=== PATIENT | female | born 1990 | race Caucasian/White ===

== ENCOUNTER 2016-06-01 08:02 | Emergency (ER) | payer BC ==
[~2016-06-01] VITALS: Ht 162.6 cm; Wt 53.5 kg
[~2016-06-01 08:02] MED LIST: GLC/500 PO; OXYC-643 PO; TRAM-10 PO
[2016-06-01 08:05] VITALS: TEMP 36.6; Ht 162.6 cm; Wt 53.5 kg
[2016-06-01] MEDS ORDERED: ONDANSETRON INJ 2 MG/ML 2 ML VIAL IV STA (08:14)
[2016-06-01] MEDS ORDERED: SODIUM CHLORIDE 0.9% 1000ML 1,000 ML IV STA (08:14)
[2016-06-01] MEDS ORDERED: HYDROmorphone INJ 1 MG/ML SYR IV STA ×3 (08:14→10:03)
--- NOTE | 2016-06-01 08:30 | EMERGENCY ROOM VISIT NOTE ---
History Report prepared by Lenin: Otto Valdovinos Under the Supervision of: Dr. Rose Denny M.D. First contact with patient: 08:08 Chief Complaint: FLANK PAIN Stated Complaint: RIGHT SIDED PAIN/KIDNEY STONE History of Present Illness The patient is a 26 year old female who presents to the Emergency Room with complaints of persistent right sided abdominal pain that started 3 hours ago. The patient notes that the discomfort woke her from sleep 3 hours ago and she wasn't able to fall asleep. She describes the discomfort as a pressure and notes that it is severe. The pressure is in her abdomen and back on the right side. The patient had an episode of vomiting. The patient has a history of kidney stones and has had [address] stents for them. She notes her symptoms are similar to her usual kidney stones. She took Zofran and Hydrocodone; however, she threw up right after taking the Hydrocodone. She denies urinary frequency. Source of History: patient Onset: 3 hours ago Position: abdomen Symptom Intensity: severe Quality: pressure Timing: other (persistent) Associated Symptoms: + back pain, No urinary symptoms (denies urinary frequency) Review of Systems See HPI for pertinent positives & negatives. A total of 10 systems reviewed and were otherwise negative. Past Medical & Surgical Medical Problems: (1) Acute pyelonephritis (2) Acute urinary tract infection (3) Appendectomy (4) ASTHMA, UNSPECIFIED (5) Bronchitis (6) Closure of atrial septal defect (7) dysautonomia (8) gallbladder surgery (9) Kidney stone (10) PNA (pneumonia) (11) Polycystic ovarian disease (12) Sinus surgery (13) Tonsillectomy Family History Diabetes mellitus FH: cancer FH: gallbladder disease FH: heart disease FH: lung disease Hypertension Kidney disease or stones Social History Smoking Status: Never Smoker Alcohol Use: none Marital Status: single Housing Status: lives with family Occupation Status: [employer] student Current/Historical Medications Scheduled Metformin Hcl (Glucophage), 500 MG PO TID Allergies Coded Allergies: Cefprozil (Verified Allergy, Severe, HIVES, 06/01/16) TOLERATED ZOSYN IN ER 10/03/12 Ciprofloxacin (Verified Allergy, Severe, HIVES, 06/01/16) Cephalosporins (Verified Allergy, Intermediate, HIVES, 06/01/16) Vancomycin (Verified Allergy, Intermediate, HIVES, 06/01/16) Ceftriaxone (Verified Allergy, Unknown, HIVES, 06/01/16) Sulfamethoxazole w/Trimethoprim (Verified Allergy, Unknown, ., 06/01/16) Physical Exam Vital Signs Date Time Temp Pulse Resp B/P Pulse Ox O2 Delivery O2 Flow Rate FiO2 06/01/16 11:10 81 18 109/72 97 06/01/16 09:44 78 18 100/74 98 Room Air 06/01/16 09:02 78 06/01/16 08:28 74 16 107/73 99 Room Air 06/01/16 08:05 36.6 89 18 120/76 99 Room Air Physical Exam Vital signs reviewed. General: Well-appearing in significant discomfort. HEENT: No scleral icterus, PERRLA, neck supple. Atraumatic. Cardiovascular: Regular rate and rhythm, no extra sounds. Pulmonary: Clear to auscultation bilaterally, normal work of breathing. Abdomen: Soft, minimal abdominal discomfort on right side, nondistended, positive bowel sounds. Back: Positive right CVA tenderness. Atraumatic Musculoskeletal: Atraumatic, no peripheral edema. Neurologic: Patient awake alert and oriented x 3, full strength in all 4 extremities. Cranial nerves 2 through 12 grossly intact. Skin: Warm, dry, no rash Medical Decision & Procedures ER Provider Diagnostic Interpretation: X-ray results as stated below per my interpretation and radiologist interpretation. Other radiology results as stated below per my review and radiologist interpretation: RENAL ULTRASOUND HISTORY: Flank pain Right flank pain, kidney stone COMPARISON: None. FINDINGS: Right kidney: Maximum dimension 11.1 cm. Several renal calcifications considered nonobstructive. Normal corticomedullary differentiation and cortical thickness. Left kidney: Maximum dimension 11.6 cm. No evidence for hydronephrosis. Several nonobstructing renal cortical calcifications. Normal corticomedullary differentiation and cortical thickness. Bladder: No bladder wall thickening. The bilateral ureteral jets were identified. IMPRESSION: Bilateral renal calcifications which appear nonobstructing. No evidence for hydronephrosis. Electronically signed by: Orlando Salmeron M.D. 06/01/2016 9:48 AM Dictated Date/Time: 06/01/2016 9:37 AM KUB HISTORY: Right flank pain kidney stone COMPARISON: KUB 09/28/2014. FINDINGS: The bowel gas pattern is unremarkable. There are no dilated loops of small bowel to suggest an obstruction. Bilateral punctate renal calculi remain unchanged. The largest in the left kidney measures 2 mm. No ureteral or bladder calculi identified. Prior cholecystectomy. No pneumoperitoneum or pneumatosis. IMPRESSION: Stable bilateral nephrolithiasis. No ureteral calculi identified. Electronically signed by: Raul Vargas M.D. 06/01/2016 8:57 AM Dictated Date/Time: 06/01/2016 8:55 AM Laboratory Results 06/01/16 08:25 Red Blood Count 4.61, Mean Corpuscular Volume 85.5, Mean Corpuscular Hemoglobin 29.9, Mean Corpuscular Hemoglobin Concent 35.0, Mean Platelet Volume 9.7, Neutrophils (%) (Auto) 60.2, Lymphocytes (%) (Auto) 28.9, Monocytes (%) (Auto) 7.6, Eosinophils (%) (Auto) 2.8, Basophils (%) (Auto) 0.4, Neutrophils # (Auto) 4.24, Lymphocytes # (Auto) 2.04, Monocytes # (Auto) 0.54, Eosinophils # (Auto) 0.20, Basophils # (Auto) 0.03 06/01/16 08:25 Test 06/01/16 08:22 06/01/16 08:25 Urine Color YELLOW Urine Appearance CLOUDY (CLEAR) Urine pH 6.0 (4.5-7.5) Urine Specific [place] 1.012 (1.000-1.030) Urine Protein NEG (NEG) Urine Glucose (UA) NEG (NEG) Urine Ketones NEG (NEG) Urine Occult Blood NEG (NEG) Urine Nitrite NEG (NEG) Urine Bilirubin NEG (NEG) Urine Urobilinogen NEG (NEG) Urine Leukocyte Esterase TRACE (NEG) Urine WBC (Auto) 5-10 /hpf (0-5) Urine RBC (Auto) 0-4 /hpf (0-4) Urine Hyaline Casts (Auto) 0 /lpf (0-5) Urine Epithelial Cells (Auto) >30 /lpf (0-5) Urine Bacteria (Auto) 1+ (NEG) White Blood Count 7.06 K/uL (4.8-10.8) Red Blood Count 4.61 M/uL (4.2-5.4) Hemoglobin 13.8 g/dL (12.0-16.0) Hematocrit 39.4 % (37-47) Mean Corpuscular Volume 85.5 fL (80-100) Mean Corpuscular Hemoglobin 29.9 pg (25-34) Mean Corpuscular Hemoglobin Concent 35.0 g/dl (32-36) Platelet Count 342 K/uL (130-400) Mean Platelet Volume 9.7 fL (7.4-10.4) Neutrophils (%) (Auto) 60.2 % Lymphocytes (%) (Auto) 28.9 % Monocytes (%) (Auto) 7.6 % Eosinophils (%) (Auto) 2.8 % Basophils (%) (Auto) 0.4 % Neutrophils # (Auto) 4.24 K/uL (1.4-6.5) Lymphocytes # (Auto) 2.04 K/uL (1.2-3.4) Monocytes # (Auto) 0.54 K/uL (0.11-0.59) Eosinophils # (Auto) 0.20 K/uL (0-0.5) Basophils # (Auto) 0.03 K/uL (0-0.2) RDW Standard Deviation 38.5 fL (36.4-46.3) RDW Coefficient of Variation 12.5 % (11.5-14.5) Immature Granulocyte % (Auto) 0.1 % Immature Granulocyte # (Auto) 0.01 K/uL (0.00-0.02) Anion Gap 9.0 mmol/L (3-11) Est Creatinine Clear Calc Drug Dose 99.0 ml/min Estimated GFR () 131.4 Estimated GFR (Non- 113.4 BUN/Creatinine Ratio 18.0 (10-20) Calcium Level 9.3 mg/dl (8.5-10.1) Total Bilirubin 0.4 mg/dl (0.2-1) Direct Bilirubin < 0.1 mg/dl (0-0.2) Aspartate Amino Transf (AST/SGOT) 7 U/L (15-37) Alanine Aminotransferase (ALT/SGPT) 19 U/L (12-78) Alkaline Phosphatase 89 U/L (45-117) Total Protein 7.9 gm/dl (6.4-8.2) Albumin 4.3 gm/dl (3.4-5.0) Human Chorionic Gonadotropin, Qual NEG (NEG) Laboratory results per my review. Medications Administered Medications (Trade) Dose Ordered Sig/Lynda Route Start Time Stop Time Status Last Admin Dose Admin Hydromorphone HCl (Dilaudid Inj) 1 mg NOW STAT IV 06/01/16 08:14 06/01/16 08:17 DC 06/01/16 08:25 1 MG Ondansetron HCl 4 mg 4 mg NOW STAT IV 06/01/16 08:14 06/01/16 08:17 DC 06/01/16 08:24 4 MG Sodium Chloride (Nss 1000ml) 1,000 ml @ 999 mls/hr Q1H1M STAT IV 06/01/16 08:14 06/01/16 09:14 DC 06/01/16 08:24 999 MLS/HR Hydromorphone HCl (Dilaudid Inj) 1 mg NOW STAT IV 06/01/16 08:53 06/01/16 08:54 DC 06/01/16 08:58 1 MG Hydromorphone HCl (Dilaudid Inj) 1 mg NOW STAT IV 06/01/16 10:03 06/01/16 10:04 DC 06/01/16 10:11 1 MG ED Course 0814: Past medical records reviewed. The patient was evaluated in room B7. A complete history and physical examination was performed. 0814: Ordered NSS 1000 ml @ 999 mls/hr IV, Zofran Inj 4 mg IV, Dilaudid Inj 1 mg IV. 0853: Ordered Dilaudid Inj 1 mg IV. 1003: Ordered Dilaudid Inj 1 mg IV. 1025: At this time, I reevaluated the patient and she is resting comfortably. 1102: Upon reevaluation, the patient appeared to have improvement of her symptoms. I discussed findings with her. She verbalized agreement of the treatment plan. The patient was discharged home. Medical Decision Differential diagnosis: Etiologies such as renal colic, appendicitis, diverticulitis, mesenteric ischemia, aortic pathology, infections, inflammatory bowel disease, PUD, biliary pathology, UTI, as well as others were entertained. This pt was evaluated and appeared to be in no distress. IV access was obtained and lab work was drawn. PT was placed on the cardiac cath tech. She was medicated with IV dilaudid x 3 doses and zofran. She was hydrated with NSS. US reveals no significant renal obstruction, + intrarenal caculi. UA is negative for blood. KUB is negative for ureteral stones, stable intrarenal calculi. Pt was informed of the findings. She may have passed a small stone. CT scan was avoided today d/t pt history of stones and young age. She was asked to f/u with urology this week and return to the ED for worsening of symptoms or any medical concerns. [place] Drug Monitoring Program Search Results: patient reviewed within database (multiple scripts from PCP) Impression Primary Impression: Right flank pain Scribe Attestation The scribe's documentation has been prepared under my direction and personally reviewed by me in its entirety. I confirm that the note above accurately reflects all work, treatment, procedures, and medical decision making performed by me. Departure Information Dispostion Home / Self-Care Referrals No Doctor, Assigned (PCP) Forms HOME CARE DOCUMENTATION FORM, IMPORTANT VISIT INFORMATION Patient Instructions My [facility] Additional Instructions Diagnosis: Right flank pain Ibuprofen 600 mg every 6 hours as needed for pain with food. [place] as prescribed by her primary care Drink plenty of clear fluids. Warm compresses. Return to the ER for worsening of symptoms or any medical concerns.
[2016-06-01 08:39] LABS: BASO % 0.4 %; BASO ABS # 0.03 K/uL (0-0.2); COMPLETE YES; EOS % 2.8 %; HEMATOCRIT 39.4 % (37-47); IG% 0.1 %; LYMPH % 28.9 %; LYMPH ABS # 2.04 K/uL (1.2-3.4); MEAN CELL VOLUME 85.5 fL (80-100); MEAN CORPUSCULAR HEMOGLOBIN 29.9 pg (25-34); MEAN PLATELET VOLUME 9.7 fL (7.4-10.4); MONO % 7.6 %; NEUT % 60.2 %; PLATELET COUNT 342 K/uL (130-400); RED BLOOD COUNT 4.61 M/uL (4.2-5.4); WHITE BLOOD COUNT 7.06 K/uL (4.8-10.8)
[2016-06-01 08:46] LABS: URINE APPEARANCE CLOUDY (CLEAR); URINE BILIRUBIN NEG (NEG); URINE COLOR YELLOW; URINE EPITHELIAL CELL AUTO >30 /lpf (0-5); URINE NITRITE NEG (NEG); URINE SPECIFIC GRAVITY 1.012 (1.000-1.030); UROBILINOGEN NEG (NEG); ZZUR CULT IF INDIC CLEAN CATCH YES
[2016-06-01 08:50] LABS: MANUAL MICROSCOPIC REQUIRED? NO; REVIEW REQ? NO
[2016-06-01 08:57] LABS: ALT/SGPT 19 U/L (12-78); BLOOD UREA NITROGEN 13 mg/dl (7-18); CALCIUM 9.3 mg/dl (8.5-10.1); CARBON DIOXIDE 25 mmol/L (21-32); CHLORIDE 108 mmol/L (98-107); CREATININE 0.74 mg/dl (0.60-1.20); GLUCOSE 90 mg/dl (70-99); POTASSIUM 3.7 mmol/L (3.5-5.1); SODIUM 142 mmol/L (136-145)
--- NOTE | 2016-06-01 08:58 | DIAGNOSTIC IMAGING REPORT ---
KUB HISTORY: Right flank pain kidney stone COMPARISON: KUB 09/28/2014. FINDINGS: The bowel gas pattern is unremarkable. There are no dilated loops of small bowel to suggest an obstruction. Bilateral punctate renal calculi remain unchanged. The largest in the left kidney measures 2 mm. No ureteral or bladder calculi identified. Prior cholecystectomy. No pneumoperitoneum or pneumatosis. IMPRESSION: Stable bilateral nephrolithiasis. No ureteral calculi identified. Electronically signed by: Raul Vargas M.D. 06/01/2016 8:57 AM Dictated Date/Time: 06/01/2016 8:55 AM
[2016-06-01 09:00] LABS: ALKALINE PHOSPHATASE 89 U/L (45-117); AST/SGOT 7 U/L (15-37)
[2016-06-01 09:12] LABS: PREG INTERNAL NEGATIVE QC NEG CLEAR BACKGROUND; PREG INTERNAL POSITIVE QC POS CONTROL LINE
--- NOTE | 2016-06-01 09:50 | DIAGNOSTIC IMAGING REPORT ---
RENAL ULTRASOUND HISTORY: Flank pain Right flank pain, kidney stone COMPARISON: None. FINDINGS: Right kidney: Maximum dimension 11.1 cm. Several renal calcifications considered nonobstructive. Normal corticomedullary differentiation and cortical thickness. Left kidney: Maximum dimension 11.6 cm. No evidence for hydronephrosis. Several nonobstructing renal cortical calcifications. Normal corticomedullary differentiation and cortical thickness. Bladder: No bladder wall thickening. The bilateral ureteral jets were identified. IMPRESSION: Bilateral renal calcifications which appear nonobstructing. No evidence for hydronephrosis. Electronically signed by: Orlando Salmeron M.D. 06/01/2016 9:48 AM Dictated Date/Time: 06/01/2016 9:37 AM
[2016-06-01 11:10] VITALS: BP 109/72; PULSE 81; O2SAT 97
== END 2016-06-01 11:11 | disposition home or self-care (01) ==
LOC: C.EDB 08:04
DX: R10.30 Lower abdominal pain, unspecified (principal); Z87.442 Personal history of urinary calculi; Z87.440 Personal history of urinary (tract) infections; J45.909 Unspecified asthma, uncomplicated; Z87.01 Personal history of pneumonia (recurrent); Z83.3 Family history of diabetes mellitus; Z82.49 Family history of ischemic heart disease and other diseases of the circulatory system

== ENCOUNTER 2016-11-06 19:55 | Emergency (ER) | payer BC, OTHER ==
[~2016-11-06] VITALS: Ht 162.6 cm; Wt 52.9 kg
[~2016-11-06 19:55] MED LIST changes: -OXYC-643 PO; -TRAM-10 PO
[2016-11-06 19:56] VITALS: TEMP 37; Ht 162.6 cm; Wt 52.9 kg
[2016-11-06] MEDS ORDERED: HYDR-5688 PO (20:18)
[2016-11-06] MEDS ORDERED: SODIUM CHLORIDE 0.9% 1000ML 1,000 ML IV STA (20:48)
[2016-11-06] MEDS ORDERED: KETOROLAC TROMETHAMINE 30 MG/ML VIAL IV STA (20:48)
[2016-11-06 21:21] LABS: URINE APPEARANCE CLEAR (CLEAR); URINE BILIRUBIN NEG (NEG); URINE COLOR YELLOW; URINE EPITHELIAL CELL AUTO >30 /lpf (0-5); URINE NITRITE NEG (NEG); URINE SPECIFIC GRAVITY 1.023 (1.000-1.030); UROBILINOGEN NEG (NEG)
[2016-11-06 21:26] LABS: BASO % 0.5 %; BASO ABS # 0.04 K/uL (0-0.2); COMPLETE YES; EOS % 1.5 %; HEMATOCRIT 35.4 % (37-47); IG% 0.1 %; LYMPH % 42.6 %; LYMPH ABS # 3.46 K/uL (1.2-3.4); MEAN CELL VOLUME 83.5 fL (80-100); MEAN CORPUSCULAR HEMOGLOBIN 29.5 pg (25-34); MEAN CORPUSCULAR HGB CONC 35.3 g/dl (32-36); MEAN PLATELET VOLUME 9.8 fL (7.4-10.4); MONO % 9.3 %; PLATELET COUNT 312 K/uL (130-400); RED BLOOD COUNT 4.24 M/uL (4.2-5.4); WHITE BLOOD COUNT 8.13 K/uL (4.8-10.8)
[2016-11-06 21:27] LABS: MANUAL MICROSCOPIC REQUIRED? NO; REVIEW REQ? NO
[2016-11-06 21:35] LABS: PARTIAL THROMBOPLASTIN RATIO 1.1; PROTHROMBIN TIME (PATIENT) 11.1 SECONDS (9.0-12.0)
--- NOTE | 2016-11-06 21:39 | DIAGNOSTIC IMAGING REPORT ---
TWO VIEW CHEST CLINICAL HISTORY: Vomiting and fever. FINDINGS: PA and lateral chest radiographs are compared to study dated 05/08/2013. The cardiomediastinal silhouette is unremarkable. An atrial septal closure device is noted. The lungs and pleural spaces are clear. There is no pneumothorax. The bony thorax appears intact. Cholecystectomy clips are seen in the right upper quadrant. IMPRESSION: No active disease in the chest. Electronically signed by: Jasmeet Gross M.D. 11/06/2016 9:38 PM Dictated Date/Time: 11/06/2016 9:36 PM
[2016-11-06 21:43] LABS: ALT/SGPT 20 U/L (12-78); BLOOD UREA NITROGEN 9 mg/dl (7-18); BUN/CREATININE RATIO 10.3 (10-20); CALCIUM 8.7 mg/dl (8.5-10.1); CARBON DIOXIDE 24 mmol/L (21-32); CHLORIDE 108 mmol/L (98-107); CREATININE 0.86 mg/dl (0.60-1.20); GLUCOSE 85 mg/dl (70-99); POTASSIUM 3.5 mmol/L (3.5-5.1); SODIUM 141 mmol/L (136-145)
[2016-11-06 21:54] LABS: ALKALINE PHOSPHATASE 64 U/L (45-117); AST/SGOT 10 U/L (15-37)
[2016-11-06 22:49] LABS: LYME DISEASE AB IGG NEG (NEG); LYME DISEASE AB IGM NEG (NEG)
[2016-11-06 23:24] VITALS: BP 108/70; PULSE 80; O2SAT 96
[2016-11-06 23:31] LABS: RHEUMATOID FACTOR < 10.0 U/mL (0-15)
--- NOTE | 2016-11-07 00:37 | EMERGENCY ROOM VISIT NOTE ---
History Report prepared by Lenin: Alana Pierce Under the Supervision of: Dr. Giovani Wong M.D. First contact with patient: 20:33 Chief Complaint: PAIN (GENERALIZED) Stated Complaint: OVER ALL PAIN,FATIGUE,FEVERS History of Present Illness The patient is a 26 year old female who presents to the Emergency Room with complaints of intermittent generalized pain that began . She currently rates her discomfort as a 7/10 in severity. The patient states that after work she didn't feel like herself. She states that her symptoms did not hit her until Monday. The patient states that her bones hurt to the point that they felt on fire. She reports bilateral leg stiffness and neck stiffness. The patient states that when she tries to get up, she has difficulty due to the stiffness. She denies ever having symptoms like this in the past. The patient states that Monday she became nauseated and vomited. She states that Monday she slept most of the day and was feeling increasingly fatigued. The patient states that she has been running a low-grade fever and chills. She additionally reports that her eyes have been sensitive to light. She denies any headache. The patient states that she has been experiencing urinary frequency, but no burning. She states that she is prone to frequent UTIs, kidney stones, and kidney infections. Today, the patient additionally reports left sided facial tingling that began two hours ago. She additionally notes a bruise to her tongue. The patient states that she recently saw her PCP who prescribed her 7 days of doxycycline after finding enlarged lymph nodes to the back of her neck. The patient denies any recent tick bites, but states that she is out in the hall often. She states that she has a history of dysautonomia, noting that she is prescribed hydrocodone to help with her pain. The patient states that she recently had a rash to her lower abdomen. She denies any cough, cold, runny nose, sore throat, or abdominal pain. Source of History: patient Onset: Position: other (global) Symptom Intensity: 7/10 Quality: other (feels like bones are on fire) Timing: intermittent Associated Symptoms: + fevers, + chills, + nausea, + vomiting, + urinary symptoms (frequency), + rash, No sorethroat, No cough, No abdominal pain Note: Associated Symptoms: neck stiffness, leg stiffness, left sided facial tingling, bruise to tongue, lymph node enlargements Review of Systems See HPI for pertinent positives & negatives. A total of 10 systems reviewed and were otherwise negative. Past Medical & Surgical Medical Problems: (1) Acute pyelonephritis (2) Acute urinary tract infection (3) Appendectomy (4) ASTHMA, UNSPECIFIED (5) Bronchitis (6) Closure of atrial septal defect (7) dysautonomia (8) gallbladder surgery (9) Kidney stone (10) PNA (pneumonia) (11) Polycystic ovarian disease (12) Sinus surgery (13) Tonsillectomy Family History Diabetes mellitus FH: cancer FH: gallbladder disease FH: heart disease FH: lung disease Hypertension Kidney disease or stones Social History Smoking Status: Never Smoker Alcohol Use: none Marital Status: single Housing Status: lives with family Occupation Status: [employer] student Current/Historical Medications Scheduled Metformin Hcl (Glucophage), 500 MG PO TID Scheduled PRN Hydrocodone/Acetaminophen 5MG/325MG ([place] 5MG/325MG), 1 TABLET PO Q4H PRN for Pain Allergies Coded Allergies: BEE STING (Verified Allergy, Severe, ANAPHYLAXIS, 11/06/16) Cefprozil (Verified Allergy, Severe, HIVES, 11/06/16) TOLERATED ZOSYN IN ER 10/03/12 Ciprofloxacin (Verified Allergy, Severe, HIVES, 11/06/16) Sulfamethoxazole w/Trimethoprim (Verified Allergy, Severe, HIVES, 11/06/16) Cephalosporins (Verified Allergy, Intermediate, HIVES, 11/06/16) Vancomycin (Verified Allergy, Intermediate, HIVES, 11/06/16) Ceftriaxone (Verified Allergy, Unknown, HIVES, 11/06/16) Physical Exam Vital Signs Date Time Temp Pulse Resp B/P (MAP) Pulse Ox O2 Delivery O2 Flow Rate FiO2 11/06/16 23:24 80 18 108/70 96 11/06/16 22:23 83 18 104/65 98 Room Air 11/06/16 19:56 37.0 82 18 121/93 99 Room Air Physical Exam Constitutional: Vital signs reviewed. Eyes: Pupils are equal round reactive to light. Conjunctiva are noninjected. ENT: Posterior cervical lymph node on right side, 2 papular regions at the occiput without tenderness or erythema. Tongue has a subcentimeter dark lesion on the right tip. Pharynx is clear without erythema or exudate. Mucous membranes are moist. Neck supple without meningeal signs. Respiratory: Clear to auscultation bilaterally. Breath sounds are equal bilaterally. Cardiovascular: Regular rate and rhythm. No rubs or gallops. GI: Soft, nondistended and nontender. Bowel sounds are present. No organomegaly. Musculoskeletal: No peripheral edema. No lower extremity tenderness. No evidence of joint swelling. Integumentary: No cyanosis. Neurological: The patient is awake and alert. No focal deficits. Psychiatric: Normal affect. Medical Decision & Procedures ER Provider Diagnostic Interpretation: X-ray results as stated below per interpretation by me and the radiologist: TWO VIEW CHEST CLINICAL HISTORY: Vomiting and fever. FINDINGS: PA and lateral chest radiographs are compared to study dated 05/08/2013. The cardiomediastinal silhouette is unremarkable. An atrial septal closure device is noted. The lungs and pleural spaces are clear. There is no pneumothorax. The bony thorax appears intact. Cholecystectomy clips are seen in the right upper quadrant. IMPRESSION: No active disease in the chest. Electronically signed by: Jasmeet Gross M.D. 11/06/2016 9:38 PM Dictated Date/Time: 11/06/2016 9:36 PM Laboratory Results 11/06/16 21:00 Red Blood Count 4.24, Mean Corpuscular Volume 83.5, Mean Corpuscular Hemoglobin 29.5, Mean Corpuscular Hemoglobin Concent 35.3, Mean Platelet Volume 9.8, Neutrophils (%) (Auto) 46.0, Lymphocytes (%) (Auto) 42.6, Monocytes (%) (Auto) 9.3, Eosinophils (%) (Auto) 1.5, Basophils (%) (Auto) 0.5, Neutrophils # (Auto) 3.74, Lymphocytes # (Auto) 3.46, Monocytes # (Auto) 0.76, Eosinophils # (Auto) 0.12, Basophils # (Auto) 0.04 11/06/16 21:00 Test 11/06/16 20:45 11/06/16 21:00 11/06/16 21:05 Urine Color YELLOW Urine Appearance CLEAR (CLEAR) Urine pH 6.0 (4.5-7.5) Urine Specific [place] 1.023 (1.000-1.030) Urine Protein NEG (NEG) Urine Glucose (UA) NEG (NEG) Urine Ketones NEG (NEG) Urine Occult Blood NEG (NEG) Urine Nitrite NEG (NEG) Urine Bilirubin NEG (NEG) Urine Urobilinogen NEG (NEG) Urine Leukocyte Esterase TRACE (NEG) Urine WBC (Auto) 5-10 /hpf (0-5) Urine RBC (Auto) 5-10 /hpf (0-4) Urine Hyaline Casts (Auto) 1-5 /lpf (0-5) Urine Epithelial Cells (Auto) >30 /lpf (0-5) Urine Bacteria (Auto) NEG (NEG) Urine Test NEG (NEG) White Blood Count 8.13 K/uL (4.8-10.8) Red Blood Count 4.24 M/uL (4.2-5.4) Hemoglobin 12.5 g/dL (12.0-16.0) Hematocrit 35.4 % (37-47) Mean Corpuscular Volume 83.5 fL (80-100) Mean Corpuscular Hemoglobin 29.5 pg (25-34) Mean Corpuscular Hemoglobin Concent 35.3 g/dl (32-36) Platelet Count 312 K/uL (130-400) Mean Platelet Volume 9.8 fL (7.4-10.4) Neutrophils (%) (Auto) 46.0 % Lymphocytes (%) (Auto) 42.6 % Monocytes (%) (Auto) 9.3 % Eosinophils (%) (Auto) 1.5 % Basophils (%) (Auto) 0.5 % Neutrophils # (Auto) 3.74 K/uL (1.4-6.5) Lymphocytes # (Auto) 3.46 K/uL (1.2-3.4) Monocytes # (Auto) 0.76 K/uL (0.11-0.59) Eosinophils # (Auto) 0.12 K/uL (0-0.5) Basophils # (Auto) 0.04 K/uL (0-0.2) RDW Standard Deviation 37.3 fL (36.4-46.3) RDW Coefficient of Variation 12.2 % (11.5-14.5) Immature Granulocyte % (Auto) 0.1 % Immature Granulocyte # (Auto) 0.01 K/uL (0.00-0.02) Prothrombin Time 11.1 SECONDS (9.0-12.0) Prothromb Time International Ratio 1.0 (0.9-1.1) Activated Partial Thromboplast Time 27.7 SECONDS (21.0-31.0) Partial Thromboplastin Ratio 1.1 Anion Gap 9.0 mmol/L (3-11) Est Creatinine Clear Calc Drug Dose 84.2 ml/min Estimated GFR () 109.6 Estimated GFR (Non- 94.6 BUN/Creatinine Ratio 10.3 (10-20) Calcium Level 8.7 mg/dl (8.5-10.1) Total Bilirubin 0.4 mg/dl (0.2-1) Direct Bilirubin < 0.1 mg/dl (0-0.2) Aspartate Amino Transf (AST/SGOT) 10 U/L (15-37) Alanine Aminotransferase (ALT/SGPT) 20 U/L (12-78) Alkaline Phosphatase 64 U/L (45-117) Total Protein 7.3 gm/dl (6.4-8.2) Albumin 4.0 gm/dl (3.4-5.0) Thyroid Stimulating Hormone (TSH) 1.170 uIu/ml (0.300-4.500) Rheumatoid Factor < 10.0 U/mL (0-15) Lyme Disease IgG Antibody NEG (NEG) Monoscreen NEG (NEG) Influenza Type A Antigen Neg for Influ A (NEG) Influenza Type B Antigen Neg for Influ B (NEG) Laboratory results as reviewed by me. Medications Administered Medications (Trade) Dose Ordered Sig/Lynda Route Start Time Stop Time Status Last Admin Dose Admin Sodium Chloride 1,000 ml @ 999 mls/hr Q1H1M STAT IV 11/06/16 20:48 11/06/16 21:48 DC 11/06/16 20:48 999 MLS/HR Ketorolac Tromethamine (Toradol Inj) 10 mg NOW STAT IV 11/06/16 20:48 11/06/16 20:51 DC 11/06/16 21:17 10 MG ED Course 2034: The patient was evaluated in room A2. A complete history and physical exam was performed. 2047: Ordered Toradol Inj 10 mg IV, Sodium Chloride 1000 ml @ 999 mls/hr IV 5: I reevaluated the patient and she is feeling better. I discussed the test results with her thus far. 2306: I reevaluated the patient and she is resting comfortably. I discussed the exam findings with her and I discussed the treatment plan. She verbalized complete understanding and agreement. She will follow up with her PCP this week. She is ready to go home. Medical Decision This is a 26-year-old female who presents with chills and body pain. Differential diagnosis includes infectious mononucleosis, Lyme disease, viral syndrome, myofascial pain, rheumatoid arthritis. I did perform a limited focused review of portions of the patient's old chart on the electronic medical record. The patient has had no recent pertinent visits to this hospital. Medication Reconciliation: I attest that I have personally reviewed the patient' s current medication list. Blood Pressure Screening: Patient was found to have a slightly elevated blood pressure due to circumstances. I do not believe that the patient requires hypertension monitoring. I did evaluate the patient as noted above. The patient is presenting with pain throughout her body. She states her legs are really bothering her although she has no specific joint pain. She describes her pain as pain in the bones. She has had no fevers but does complain of chills. She has some neck stiffness but denies headache. She has lesions on the back of her neck which do not appear to be abscesses or cellulitic. She also has a small cervical lymph node posteriorly. She was previously treated with doxycycline by her PCP because of these lesions. IV access was established. I did treat the patient with IV Toradol and normal saline. I did order and review the patient's chest x-ray as described above. I did order and review the patient's blood work as noted in the electronic medical record. Her white blood cell count is not elevated. Monospot and Lyme testing are negative. I did order a urinalysis which does not show signs of infection. I did reevaluate the patient. She states she is feeling better. I did discuss the test results with the patient and her mother. At this time it is unclear what is causing her pain. I did recommend very close follow up with her doctor. She is feeling better she was discharged home. She was given return instructions as outlined below. Impression Primary Impression: Total body pain Additional Impression: Scalp lesion Scribe Attestation The scribe's documentation has been prepared under my direct and personally reviewed by me in its entirety. I confirm that the note above accurately reflects all work, treatment, procedures, and medical decision making performed by me. Departure Information Dispostion Home / Self-Care Referrals Chele Madera PA-C (PCP) Forms HOME CARE DOCUMENTATION FORM, IMPORTANT VISIT INFORMATION, WORK / SCHOOL INSTRUCTIONS Patient Instructions My [facility] Additional Instructions You have been examined and treated today on an emergency basis only. This is not a substitute for, or an effort to provide, complete comprehensive medical care. It is impossible to recognize and treat all injuries or illnesses in a single emergency department visit. It is therefore important that you follow up closely with your physician. Call as soon as possible for an appointment. Return for worsening symptoms or if you develop fever, vomiting, rash or any other concerning symptoms. Problem Qualifiers
[2016-11-10 15:39] LABS: 18KDIGG BAND NONREACTIVE (NONREACTIVE); 23KDIGG BAND NONREACTIVE (NONREACTIVE); 23KDIGM BAND REACTIVE (NONREACTIVE); 28KDIGG BAND NONREACTIVE (NONREACTIVE); 30KDIGG BAND NONREACTIVE (NONREACTIVE); 39KDIGG BAND NONREACTIVE (NONREACTIVE); 39KDIGM BAND NONREACTIVE (NONREACTIVE); 41KDIGG BAND REACTIVE (NONREACTIVE); 41KDIGM BAND REACTIVE (NONREACTIVE); 45KDIGG BAND NONREACTIVE (NONREACTIVE); 58KDIGG BAND NONREACTIVE (NONREACTIVE); 66KDIGG BAND NONREACTIVE (NONREACTIVE); 93KDIGG BAND NONREACTIVE (NONREACTIVE)
== END 2016-11-06 23:41 | disposition home or self-care (01) ==
LOC: C.EDB 19:56 → C.EDA 23:41
DX: R52 Pain, unspecified (principal); L98.9 Disorder of the skin and subcutaneous tissue, unspecified; R50.9 Fever, unspecified; J45.909 Unspecified asthma, uncomplicated; G90.1 Familial dysautonomia [Riley-Day]; E28.2 Polycystic ovarian syndrome; K14.8 Other diseases of tongue; Z79.84 Long term (current) use of oral hypoglycemic drugs; Z83.3 Family history of diabetes mellitus; Z82.49 Family history of ischemic heart disease and other diseases of the circulatory system; Z84.1 Family history of disorders of kidney and ureter; R59.0 Localized enlarged lymph nodes; Z87.440 Personal history of urinary (tract) infections; Z87.442 Personal history of urinary calculi

== ENCOUNTER → 2017-04-12 | Outpatient (CLI) | payer OTHER ==
[~2017-04-12] MED LIST changes: +HYDR-5688 PO
[2017-04-12 17:42] LABS: BASO % 0.4 %; BASO ABS # 0.03 K/uL (0-0.2); COMPLETE YES; EOS % 1.7 %; HEMATOCRIT 36.3 % (37-47); IG% 0.1 %; LYMPH % 38.4 %; LYMPH ABS # 2.99 K/uL (1.2-3.4); MEAN CORPUSCULAR HEMOGLOBIN 29.1 pg (25-34); MEAN CORPUSCULAR HGB CONC 33.9 g/dl (32-36); MEAN PLATELET VOLUME 10.5 fL (7.4-10.4); MONO % 7.7 %; NEUT % 51.7 %; PLATELET COUNT 339 K/uL (130-400); RED BLOOD COUNT 4.22 M/uL (4.2-5.4); WHITE BLOOD COUNT 7.79 K/uL (4.8-10.8)
[2017-04-12 18:10] LABS: ALT/SGPT 25 U/L (12-78); AST/SGOT 9 U/L (15-37); BLOOD UREA NITROGEN 10 mg/dl (7-18); BUN/CREATININE RATIO 16.1 (10-20); CALCIUM 8.6 mg/dl (8.5-10.1); CARBON DIOXIDE 26 mmol/L (21-32); CHLORIDE 106 mmol/L (98-107); GLUCOSE 81 mg/dl (70-99); POTASSIUM 3.6 mmol/L (3.5-5.1); SODIUM 138 mmol/L (136-145)
[2017-04-12 18:17] LABS: ALB/GLOB RATIO 1.1 (0.9-2); ALKALINE PHOSPHATASE 77 U/L (45-117); THYROID STIMULATING HORMONE 0.451 uIu/ml (0.300-4.500); TOTAL IRON BINDING CAPACITY 322 mcg/dl (250-450)
== END | disposition home or self-care (01) ==
LOC: C.LAB1850 16:06
PROVIDERS: ATTEND Physician Assistant
DX: G90.9 Disorder of the autonomic nervous system, unspecified (principal); R51 Headache; R59.0 Localized enlarged lymph nodes

== ENCOUNTER 2017-05-23 13:08 | Emergency (ER) | payer OTHER ==
[~2017-05-23] VITALS: Ht 162.6 cm; Wt 51.0 kg
[2017-05-23 13:09] VITALS: Ht 162.6 cm; Wt 51.0 kg
[2017-05-23] MEDS ORDERED: GLC/500 PO (14:08)
[2017-05-23] MEDS ORDERED: ALBUT/IPRATROP 3MG/0.5MG NEB 3 ML VIAL INH STA (15:54)
[2017-05-23] MEDS ORDERED: COUGH DROP (SUGAR FREE) LOZ 24 LOZ/1 BOX LOZ STA (15:54)
[2017-05-23] MEDS ORDERED: ACETAMINOPHEN 500 MG TAB PO STA (15:54)
[2017-05-23] MEDS ORDERED: KETOROLAC TROMETHAMINE 30 MG/ML VIAL IV STA (15:54)
[2017-05-23 16:07] VITALS: O2SAT 98
--- NOTE | 2017-05-23 16:11 | EMERGENCY ROOM VISIT NOTE ---
History Report prepared by Lenin: Pamela Lozano Under the Supervision of: Dr. Jm Medina M.D. First contact with patient: 15:29 Chief Complaint: FLU LIKE SX Stated Complaint: FEVER UP TO 105, CHEST TIGHTNESS, PAIN, SORE THROA History of Present Illness The patient is a 27 year old white female with a past medical history of PCOS, ASD, and asthma who presents to the ED with a cc of worsening flu-like symptoms beginning yesterday. Pt developed a low-grade fever yesterday and some shortness of breath. She states that it felt like someone was sitting on her chest. She reports a sharp pain in her right back that radiates into her right chest. Her pain is worsened with coughing and deep inspiration. The patient had a fever last night with a temperature of 105. She has been alternating Tylenol and ibuprofen but states that her temperature was 103.8 [employer]. She did have a flu shot this year. Positive nausea. Negative vomiting. Pt denies any personal history of blood clots and any recent prolonged travel. Her LNMP was 3 weeks ago. Source of History: patient Onset: yesterday Position: other (global) Symptom Intensity: temperature 105 Quality: other (flu-like) Timing: worsening Modifying Factors (Relieving): tylenol, ibuprofen Associated Symptoms: + fevers, + SOB, + nausea, No vomiting Review of Systems See HPI for pertinent positives and negatives. A total of ten systems were reviewed and were otherwise negative. Past Medical & Surgical Medical Problems: (1) Acute pyelonephritis (2) Acute urinary tract infection (3) Appendectomy (4) ASTHMA, UNSPECIFIED (5) Bronchitis (6) Closure of atrial septal defect (7) dysautonomia (8) gallbladder surgery (9) Kidney stone (10) PNA (pneumonia) (11) Polycystic ovarian disease (12) Sinus surgery (13) Tonsillectomy Surgical Problems: (1) Hx of appendectomy (2) Hx of cholecystectomy Family History Diabetes mellitus FH: cancer FH: gallbladder disease FH: heart disease FH: lung disease Hypertension Kidney disease or stones Social History Smoking Status: Never Smoker Alcohol Use: none Marital Status: single Housing Status: lives with family Occupation Status: [employer] student Current/Historical Medications Scheduled Metformin Hcl (Glucophage), 500 MG PO TID Oseltamivir (Tamiflu), 75 MG PO BID Prednisone (Prednisone), 50 MG PO DAILY Scheduled PRN Hydrocodone/Acetaminophen 5MG/325MG ([place] 5MG/325MG), 1 TABLET PO Q4H PRN for Pain Orphenadrine Citrate (Norflex), 100 MG PO BID PRN for Pain Allergies Coded Allergies: BEE STING (Verified Allergy, Severe, ANAPHYLAXIS, 11/06/16) Cefprozil (Verified Allergy, Severe, HIVES, 11/06/16) TOLERATED ZOSYN IN ER 10/03/12 Ciprofloxacin (Verified Allergy, Severe, HIVES, 11/06/16) Sulfamethoxazole w/Trimethoprim (Verified Allergy, Severe, HIVES, 11/06/16) Cephalosporins (Verified Allergy, Intermediate, HIVES, 11/06/16) Vancomycin (Verified Allergy, Intermediate, HIVES, 11/06/16) Ceftriaxone (Verified Allergy, Unknown, HIVES, 11/06/16) Physical Exam Vital Signs Date Time Temp Pulse Resp B/P (MAP) Pulse Ox O2 Delivery O2 Flow Rate FiO2 05/23/17 17:21 36.9 92 18 133/73 99 Room Air 05/23/17 16:35 97 05/23/17 16:15 87 14 110/73 98 Room Air 05/23/17 16:07 98 Room Air 05/23/17 13:09 36.8 99 16 112/80 98 Room Air Physical Exam GENERAL: Awake, alert, well-appearing, NAD, hoarse voice. HENT: Normocephalic, atraumatic. Posterior pharynx is clear, mild erythema, no tonsillar or uvular deviation, no stridor EYES: Normal conjunctiva. Sclera non-icteric. NECK: Supple. No nuchal rigidity. FROM. No signs of meningismus. RESPIRATORY: CTAB, no rhonchi, wheezing, crackles CARDIAC: RRR, no MRG ABDOMEN: Soft, NTND, BS+ MSK: No chest wall TTP, no LE edema NEURO: GCS 15, CN 2-12 intact, moves all 4s on command SKIN: No rash or jaundice noted. Medical Decision & Procedures ER Provider Diagnostic Interpretation: Radiology results as stated below per my review and radiologist interpretation: CHEST ONE VIEW PORTABLE CLINICAL HISTORY: Chest pain. Chest tightness. Fever. COMPARISON STUDY: Chest radiograph November 06, 2016. FINDINGS: Lung volumes are normal. No pneumothorax or pleural effusion is present. There is no consolidation or evidence of pulmonary edema. Note is made of a probable ASD occluder. There is no evidence for pulmonary edema. There are cholecystectomy clips. IMPRESSION: No acute cardiopulmonary findings. Electronically signed by: Tomer Szymanski M.D. 05/23/2017 4:09 PM Dictated Date/Time: 05/23/2017 4:08 PM Laboratory Results 05/23/17 16:10 Red Blood Count 4.32, Mean Corpuscular Volume 85.2, Mean Corpuscular Hemoglobin 29.2, Mean Corpuscular Hemoglobin Concent 34.2, Mean Platelet Volume 9.8, Neutrophils (%) (Auto) 73.4, Lymphocytes (%) (Auto) 13.2, Monocytes (%) (Auto) 11.8, Eosinophils (%) (Auto) 0.6, Basophils (%) (Auto) 0.8, Neutrophils # (Auto ) 3.91, Lymphocytes # (Auto) 0.70, Monocytes # (Auto) 0.63, Eosinophils # (Auto ) 0.03, Basophils # (Auto) 0.04 05/23/17 16:10 Test 05/23/17 16:09 05/23/17 16:10 Influenza Type A Antigen POS for Influ A (NEG) Influenza Type B Antigen Neg for Influ B (NEG) White Blood Count 5.32 K/uL (4.8-10.8) Red Blood Count 4.32 M/uL (4.2-5.4) Hemoglobin 12.6 g/dL (12.0-16.0) Hematocrit 36.8 % (37-47) Mean Corpuscular Volume 85.2 fL (80-100) Mean Corpuscular Hemoglobin 29.2 pg (25-34) Mean Corpuscular Hemoglobin Concent 34.2 g/dl (32-36) Platelet Count 240 K/uL (130-400) Mean Platelet Volume 9.8 fL (7.4-10.4) Neutrophils (%) (Auto) 73.4 % Lymphocytes (%) (Auto) 13.2 % Monocytes (%) (Auto) 11.8 % Eosinophils (%) (Auto) 0.6 % Basophils (%) (Auto) 0.8 % Neutrophils # (Auto) 3.91 K/uL (1.4-6.5) Lymphocytes # (Auto) 0.70 K/uL (1.2-3.4) Monocytes # (Auto) 0.63 K/uL (0.11-0.59) Eosinophils # (Auto) 0.03 K/uL (0-0.5) Basophils # (Auto) 0.04 K/uL (0-0.2) RDW Standard Deviation 38.6 fL (36.4-46.3) RDW Coefficient of Variation 12.4 % (11.5-14.5) Immature Granulocyte % (Auto) 0.2 % Immature Granulocyte # (Auto) 0.01 K/uL (0.00-0.02) Anion Gap 5.0 mmol/L (3-11) Est Creatinine Clear Calc Drug Dose 93.6 ml/min Estimated GFR () 130.5 Estimated GFR (Non- 112.6 BUN/Creatinine Ratio 14.9 (10-20) Calcium Level 8.4 mg/dl (8.5-10.1) Troponin I < 0.015 ng/ml (0-0.045) Laboratory results reviewed by me. Medications Administered Medications (Trade) Dose Ordered Sig/Lynda Route Start Time Stop Time Status Last Admin Dose Admin Albuterol/ Ipratropium (Duoneb) 3 ml NOW STAT INH 05/23/17 15:54 05/23/17 15:56 DC 05/23/17 16:11 3 ML Ketorolac Tromethamine (Toradol Inj) 30 mg NOW STAT IV 05/23/17 15:54 05/23/17 15:56 DC 05/23/17 16:12 30 MG Prednisone (PredniSONE TAB) 50 mg NOW STAT PO 05/23/17 15:54 05/23/17 15:56 DC 05/23/17 16:12 50 MG Acetaminophen (Tylenol Tab) 500 mg NOW STAT PO 05/23/17 15:54 05/23/17 15:56 DC 05/23/17 16:12 500 MG Menthol ([place]) 1 [place] NOW STAT [place] 05/23/17 15:54 05/23/17 15:56 DC 05/23/17 16:12 1 [place] Oseltamivir Phosphate (Tamiflu Cap) 75 mg NOW STAT PO 05/23/17 17:00 05/23/17 17:01 DC 05/23/17 17:20 75 MG ECG Indication: chest pain Rate (beats per minute): 87 Rhythm: normal sinus Findings: T-wave inversion (in leads 3 and AVF), other (normal intervals; normal axis) Change: ECG as interpreted by myself. ED Course 152: The patient was evaluated in room A4B. A complete history and physical exam was performed. 1706: I reassessed the patient at this time. She is feeling better and resting comfortably. I discussed the results and treatment plan with the patient. I answered all pertaining questions that she had. She expressed understanding and verbalized agreement. The patient will be discharged home. Medical Decision Differential diagnosis: Etiologies such as viral syndrome, otitis, pharyngitis, pneumonia, influenza, meningitis, urinary tract infection, sepsis, bacteremia, as well as others were entertained. The patient is a 27 year old white female with a past medical history of PCOS, ASD, and asthma who presents to the ED with a cc of worsening flu-like symptoms beginning yesterday. Patient was seen and evaluated the bedside. Patient had complained of high fever and generalized body aches. Patient did complain of some mild chest discomfort. Given the patient's constellation of symptoms a sounds more infectious in nature. We did discuss the possibility of blood clots however this was less likely. The patient did have blood work completed, EKG, troponin , chest x-ray. Patient troponin negative EKG nonischemic. Less likely ACS. Patient was flu positive. Again with regard to the patient's history and physical exam along with a positive fluid this is the most likely etiology of her symptoms. Patient was given a first dose of Tamiflu. Patient was also told about [id number] type medications to take for her other symptoms. Patient was agreeable to this plan of care. Patient was deemed suitable for outpatient follow-up and treatment. Patient was given strict follow-up, discharge, and return precautions. All questions were answered. Patient was deemed suitable for outpatient follow-up at this time. Patient agreed with the plan of care and was safely discharged home. The chart was completed utilizing [employer] Speech voice recognition software. Grammatical errors, random word insertions, pronoun errors, and incomplete sentences are an occasional consequence of this system due to software limitations, ambient noise, and hardware issues. Any formal questions or concerns about the content, text, or information contained within the body of this dictation should be directly addressed to the physician for clarification. Medication Reconcilliation Current Medication List: was personally reviewed by me Blood Pressure Screening Patient's blood pressure: Normal blood pressure Impression Primary Impression: Influenza A Additional Impression: Upper respiratory infection Scribe Attestation The scribe's documentation has been prepared under my direction and personally reviewed by me in its entirety. I confirm that the note above accurately reflects all work, treatment, procedures, and medical decision making performed by me. Departure Information Dispostion Home / Self-Care Prescriptions Oseltamivir (Tamiflu) 75 Mg Cap 75 MG PO BID for 5 Days, #9 CAP Prov: Jm Medina M.D. 05/23/17 Prednisone (PREDNISONE) 50 Mg Tab 50 MG PO DAILY for 4 Days, #4 TAB Prov: Jm Medina M.D. 05/23/17 Referrals Chele Madera PA-C (PCP) Forms HOME CARE DOCUMENTATION FORM, IMPORTANT VISIT INFORMATION Patient Instructions ED Flu, ED Upper Resp Infec No Abx Tx, My [facility], Sore Throat - [facility], Sore Throats Self Care Additional Instructions Please return to the emergency department if you have worsening or recurrent symptoms not amenable to at-home treatment. Please call for a follow-up appointment with her primary care physician. Please take your medications as prescribed. If you have other concerns and/or complaints please feel free to also call your primary care physician's office or return the ED for further evaluation, management, and treatment. If you do take the steroids take them in the morning and with food. If you do not you may take 600-800 mg of Motrin every 6 hours as needed for pain or fever. You may take up to 1 g of Tylenol every 6 hours for pain or fever. Take your medications as prescribed. If taking an antibiotic consider taking a probiotic and/or eating yogurt, but at the least, please take with food as it can cause upset stomach. If culture results are not available at discharge, if they are positive for concern of infection, you will be informed of the results as soon as they are available. If you were seen between 11pm and 7AM all radiology reads will be re-read by our in house staff. If any major discrepancies are discovered, you will be notified. You have been examined and treated today on an emergency basis only. This is not a substitute for, or an effort to provide, complete comprehensive medical care. It is impossible to recognize and treat all injuries or illnesses in a single emergency department visit. It is therefore important that you follow up closely with [facility], your PCP, and/or your specialist(s). Call as soon as possible for an appointment. Thank you for your time and consideration. I look forward to speaking with you again soon. Please don't hesitate to call us if you have any questions. Problem Qualifiers Additional Impression: Upper respiratory infection URI type: acute laryngopharyngitis Qualified Codes: J06.0 - Acute laryngopharyngitis
[2017-05-23 16:30] LABS: BASO % 0.8 %; BASO ABS # 0.04 K/uL (0-0.2); EOS % 0.6 %; EOS ABS # 0.03 K/uL (0-0.5); HEMATOCRIT 36.8 % (37-47); HEMOGLOBIN 12.6 g/dL (12.0-16.0); IG# 0.01 K/uL (0.00-0.02); LYMPH % 13.2 %; MEAN CELL VOLUME 85.2 fL (80-100); MEAN CORPUSCULAR HEMOGLOBIN 29.2 pg (25-34); MEAN CORPUSCULAR HGB CONC 34.2 g/dl (32-36); MEAN PLATELET VOLUME 9.8 fL (7.4-10.4); MONO % 11.8 %; MONO ABS # 0.63 K/uL (0.11-0.59); NEUT % 73.4 %; NEUT ABS # 3.91 K/uL (1.4-6.5); PLATELET COUNT 240 K/uL (130-400); RED CELL DISTRIBUTION WIDTH CV 12.4 % (11.5-14.5); RED CELL DISTRIBUTION WIDTH SD 38.6 fL (36.4-46.3); WHITE BLOOD COUNT 5.32 K/uL (4.8-10.8)
[2017-05-23 16:50] LABS: BLOOD UREA NITROGEN 11 mg/dl (7-18); CALCIUM 8.4 mg/dl (8.5-10.1); CARBON DIOXIDE 23 mmol/L (21-32); CREATININE 0.74 mg/dl (0.60-1.20); GLUCOSE 94 mg/dl (70-99); POTASSIUM 3.7 mmol/L (3.5-5.1); SODIUM 135 mmol/L (136-145)
[2017-05-23] MEDS ORDERED: [UNRECOGNIZED DRUG - CODE] PO (16:55)
[2017-05-23 16:58] LABS: INFLUENZA B ANTIGEN Neg for Influ B (NEG)
[2017-05-23] MEDS ORDERED: OSELTAMIVIR PHOSPHATE 75 MG CAP PO STA (17:00)
[2017-05-23] MEDS ORDERED: PRED50TA PO (17:03)
[2017-05-23] MEDS ORDERED: OSEL75CA12 PO (17:03)
[2017-05-23 17:21] VITALS: BP 133/73; PULSE 92; TEMP 36.9; O2SAT 99
[2017-05-23] MEDS ORDERED: HYDR-5688 PO (20:18)
== END 2017-05-23 17:49 | disposition home or self-care (01) ==
LOC: C.EDB 13:09 → C.EDA 17:49
DX: J09.X2 Influenza due to identified novel influenza A virus with other respiratory manifestations (principal); J06.9 Acute upper respiratory infection, unspecified; R50.9 Fever, unspecified; R07.9 Chest pain, unspecified; J02.9 Acute pharyngitis, unspecified; J45.909 Unspecified asthma, uncomplicated

== ENCOUNTER → 2017-09-07 | Outpatient (CLI) | payer OTHER ==
[~2017-09-07] MED LIST changes: +[UNRECOGNIZED DRUG - CODE] PO
[2017-09-07 13:39] LABS: BLOOD UREA NITROGEN 12 mg/dl (7-18); CALCIUM 8.6 mg/dl (8.5-10.1); CARBON DIOXIDE 26 mmol/L (21-32); CHOLESTEROL 128 mg/dl (0-200); CREATININE 0.71 mg/dl (0.60-1.20); GLUCOSE 83 mg/dl (70-99); POTASSIUM 4.3 mmol/L (3.5-5.1); SODIUM 138 mmol/L (136-145)
[2017-09-07 13:42] LABS: LDL CHOLESTEROL CALCULATED 71 mg/dl
== END | disposition home or self-care (01) ==
LOC: C.LAB1850 11:42
PROVIDERS: ATTEND Physician Assistant
DX: E28.2 Polycystic ovarian syndrome (principal)

== ENCOUNTER 2024-11-06 18:27 | Inpatient (IN) ==
[2024-11-06] MEDS: SODIUM CHLORIDE 0.9% 1,000 ML IV ONE (18:44)
--- NOTE | 2024-11-06 18:48 | Emergency Department Note ---
Impression & Plan Seizure, Hypophosphatemia, Behcet's disease ED Provider Note NAME: ROLF CLEVELAND AGE: 34 SEX: F : 1990 ARRIVES VIA: Ambulance INFORMANT: Patient, family ED PROVIDER(S): Jm Medina MD CHIEF COMPLAINT: Seizure MEDICAL DECISION MAKING: Patient presents due to concern for seizure. IV was established and blood work was obtained. Given breakthrough seizure frequency the patient was ordered Keppra 1500 as well as 1 of Ativan. Patient was ordered CT head. EKG with ST-T wave abnormality anteriorly. Some this may be chronic in reviewing the patient's history does show a prior ASD status post closure which may also be contributory. However, given the seizure and abnormal EKG CT angiography of the chest was also ordered. Patient currently does not have any headache or chest pain or shortness of breath. She does not take any control. Patient's blood work shows a normal white count hemoglobin and platelet count kidney function unremarkable. Significant hypophosphatemia at 1.1. Beta-hCG negative. The patient CT angiography of the chest is negative. EKG appears to be unchanged from a prior completed in September. Patient CT head negative. Patient did feel better but given the patient's significant hypophosphatemia and breakthrough seizures I did speak with Dr. Joe who recommended 1500 Keppra twice daily. I did subsequently speak with Dr. Kramer and the patient was admitted to the medicine service. Discussion w/ other healthcare providers: Dr. Joe neurology Dr. Kramer inpatient medicine service Prior /Outside records reviewed: I reviewed prior EKG from [facility] system from September. Differential diagnosis: Epilepsy, infection, hypoglycemia, electrolyte abnormalities, cardiac sources, intracerebral event, trauma, toxicologic, neurologic, syncope, as well as other pathologies. Diagnostics, as interpreted by me: ECG: Sinus tachycardia, rate of 102, normal TN QRS prolonged QTc, normal axis no ST elevations, slight depression with T wave versions anteriorly. Also T wave inversion in lead III. Patient's EKG does not look too dissimilar but the patient might have more of a depression in V2 compared to prior but it does appear the patient had T wave versions in 3 and V3 with some flattening in V4. Prior EKG reviewed from October 18, 2024 appears grossly unchanged from today's EKG. This was obtained through [facility] records through case management. Cardiac monitoring: An order was placed for continuous cardiac monitoring. The monitor shows a rate of 102 with tachycardic and regular rhythm. Patient was placed on pulse oximetry Medical decision rules: None Imaging studies: I informally interpreted the patient's CT head does not show obvious ICH with formal report to follow. HPI: Patient presents due to concern for seizure. This occurred just prior to arrival. Reportedly was driving back to [place] where the patient is from which he had a seizure in the car. Patient's seizure lasted maybe 3 to 4 minutes and was postictal for minutes thereafter. EMS arrived and the patient was given fluids as well as IV Ativan. Patient does endorse feeling little shaky. Patient reports that she last had [id number] seizures about 4 weeks ago and was seen at [facility]. Patient states that she currently does not carry any abortive medications but does follow with neurology for seizures at [facility]. 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 She states that she currently does not take any chronic steroids. No chest pain or shortness of breath. Patient denies any headache. Patient reports that she did not have a CT head completed when she was seen at [facility]. Patient does follow locally with Gabi Peters. She denies any increase in stressors lack of sleep denies alcohol tobacco or drug use. No supplements or stimulants no caffeine use. No medications to avoid sleep. Patient does report a known seizure history for which she does take Keppra unclear as to the dosage but takes it twice daily. The patient states that no increased during her last seizure episode. PAST MEDICAL HISTORY: See Below PAST SURGICAL HISTORY: See Below SOCIAL HISTORY: See Below HOME MEDICATIONS: See Below ALLERGIES: See Below VITALS: See Below PHYSICAL EXAMINATION: GENERAL: Somewhat tremulous but nontoxic in appearance. EYE EXAM: Normal conjunctiva. PERRL, no anisocoria and EOM's grossly intact w/o pain. OROPHARYNX: Moist mucus membranes, grossly normal dentition. NECK: Trachea midline, no stridor. LUNGS: Clear to auscultation. Normal chest wall mechanics. HEART: NSR, no MRG. ABDOMEN: Abdomen soft, non-tender, no masses, no rebound or guarding. BACK: No CVA TTP. SKIN: No rashes and no bruising. UPPER EXTREMITIES: Upper extremities are grossly normal. LOWER EXTREMITIES: Grossly normal, no edema. NEURO EXAM: Awake and alert, follows commands, no obvious facial asymmetry, normal speech, moves all 4 extremities. Good finger-nose, no drift and no sensory deficits. Past Med/Surg History Problem List (Updated 11/07/24 @ 17:49 by Jm Medina MD) Behcet's disease (Acute) Hypophosphatemia (Acute) Seizure (Acute) Hypophosphatemia Hypokalemia Seizure Fracture of metatarsal of right foot, closed Right ankle sprain Ankle sprain Loss of consciousness Behcet's disease Diarrhea Leg pain, bilateral Chronic pain Fatigue Dysautonomia Abdominal pain Medical History Hx of Lyme disease Adverse reaction to anesthetic agent Nausea Irregular heartbeat Prolonged QT Anemia Closed osteochondral fracture of right patella Bilateral nephrolithiasis Anxiety Chronic neck pain no ROM limitations Dysautonomia dating back to 2014 records (on anesthesia preop evaluation from ventral hernia repair done 04/21/15 at [facility] [place] [facility]: LMA#4) Migraine Asthma childhood Acute pyelonephritis (10/03/12) Closure of atrial septal defect (10/03/12) Surgical History H/O excision of mass (04/21/15) Excision of abdominal wall scar tissue 04/21/15 Dr. Lopez Nausea and vomiting after administration of anesthetic agent History of cystoscopy X3 Hx of abdominal surgery BENIGN ABDOMINAL MASS REMOVED History of cholecystectomy History of appendectomy History of colonoscopy History of esophagogastroduodenoscopy (EGD) History of tonsillectomy History of endoscopic sinus surgery Hx of percutaneous transcatheter closure of congenital ASD 2006 Hx of appendectomy Hx of cholecystectomy Family History Mother Family history of reaction to anesthesia nausea/vomiting Hypertension Grandmother (Paternal) Family history of pancreatic cancer Grandfather (Maternal) Family history of diabetes mellitus Stroke Family history of bleeding disorder Father Hypertension Grandmother (Maternal) Stroke Grandfather (Paternal) Stroke Uncle Family history of bleeding disorder Other Breast cancer Cancer Heart disease No family history of adverse response to anesthesia Social History Smoking Status: Never smoker Second Hand Exposure: No; Do You Dip or Chew Tobacco: No; Hx Alcohol Use: No Hx Substance Use: No Preferred Language: Telugu Communication Ability: Effective Marketing Developer Required: No Beliefs That Will Affect Care: None marital status: Single Current Living Situation: Family Current Living Situation Comment: Lives with parents current occupational status: employed current occupation: [employer] Feels Safe at Home: Yes Diet: regular Assistive Devices: None Allergies Allergies Allergy/AdvReac Type Severity Reaction Status Date / Time bee venom protein (honey bee) Allergy Severe ANAPHYLAXIS Verified 11/06/24 20:25 cefprozil Allergy Severe HIVES Verified 11/06/24 20:25 ciprofloxacin Allergy Severe HIVES Verified 11/06/24 20:25 sulfamethoxazole Allergy Severe Anaphylaxis Verified 11/06/24 20:25 trimethoprim Allergy Severe Anaphylaxis Verified 11/06/24 20:25 vancomycin Allergy Intermediate HIVES Verified 11/06/24 20:25 ceftriaxone Allergy Unknown HIVES Verified 11/06/24 20:25 baclofen AdvReac Severe loss of Verified 11/06/24 23:18 consciousness/severe sedation Home Meds Home Medications Medication Instructions Recorded Confirmed prochlorperazine maleate 5 mg 5 mg PO TID PRN NAUSEA/VOMITING 12/10/21 11/06/24 tablet (Compazine) amitriptyline 25 mg tablet 25 mg PO HS 11/06/24 11/06/24 carisoprodol 350 mg tablet 350 mg PO QID 11/06/24 11/06/24 ergocalciferol (vitamin D2) 1,250 1,250 mcg PO WK 11/06/24 11/06/24 mcg (50,000 unit) capsule (Vitamin D2) folic acid 1 mg tablet 1 mg PO DAILY 11/06/24 11/06/24 gabapentin 300 mg capsule 900 mg PO TID 11/06/24 11/06/24 gabapentin 800 mg tablet 800 mg PO DIRECTED PRN NEEDED 11/06/24 11/06/24 hyoscyamine sulfate 0.125 mg tablet 0.125 mg PO TID PRN ABD CRAMPING 11/06/24 11/06/24 meloxicam 7.5 mg tablet 7.5 mg PO DAILY 11/06/24 11/06/24 oxycodone 5 mg tablet 5 - 10 mg PO Q4H PRN Pain 11/06/24 11/06/24 upadacitinib 15 mg tablet,extended 15 mg PO DAILY 11/06/24 11/06/24 release 24 hr (Rinvoq) Previous Rx's Medication Instructions Recorded duloxetine 60 mg capsule,delayed 60 mg PO DAILY #90 caps 06/13/22 release levetiracetam 500 mg tablet 1,500 mg (3 x 500 mg) PO BID #60 11/07/24 (Keppra) tabs Results & Data (ED) Vital Signs Vital Signs - 24 hr 11/06/24 18:35 11/06/24 20:00 11/06/24 21:00 Pulse Rate 105 H 98 H Respiratory Rate 17 18 Respiratory Effort / Characteristics Non-Labored Spontaneous Respiratory Depth Normal Respiratory Pattern Regular Blood Pressure 132/97 118/81 101/66 Blood Pressure Mean 108 90 77 Blood Pressure Position Sitting Pulse Oximetry 98 98 Oxygen Delivery Method Room Air Room Air Sepsis Recent Fever Within 48 Hours No Sepsis New/Unexplained Change in Mental Status N/A Sepsis Action Taken by Nursing No Action Required 11/06/24 21:00 Pulse Rate 93 H Respiratory Rate 18 Respiratory Effort / Characteristics Respiratory Depth Respiratory Pattern Blood Pressure 101/66 Blood Pressure Mean 77 Blood Pressure Position Pulse Oximetry Oxygen Delivery Method Sepsis Recent Fever Within 48 Hours Sepsis New/Unexplained Change in Mental Status Sepsis Action Taken by Assisted Medications Current Medication List: was personally reviewed by me Laboratory Data Attestation: I reviewed the patient's lab results. 11/06/24 18:48 11/07/24 05:27 Lab Results 11/06/24 Range/Units 18:48 WBC 10.31 (4.8-10.8) K/ul RBC 4.16 L (4.20-5.40) M/uL Hgb 12.0 (12.0-16.0) g/dl Hct 35.3 L (37.0-47.0) % MCV 84.9 (80.0-100.0) fL MCH 28.8 (25.0-34.0) pg MCHC 34.0 (32.0-36.0) g/dL RDW Std Deviation 38.5 (36.4-46.3) fL RDW Coeff of Davy 12.6 (11.5-14.5) % Plt Count 333 (130-400) K/uL MPV 10.3 (9.4-12.4) fL Immature Gran % (Auto) 0.3 % Neut % (Auto) 75.8 % Lymph % (Auto) 18.3 % [place] % (Auto) 4.9 % Eos % (Auto) 0.4 % Baso % (Auto) 0.3 % Neut # (Auto) 7.81 H (1.40-6.50) K/uL Lymph # (Auto) 1.89 (1.20-3.40) K/uL [place] # (Auto) 0.51 (0.11-0.59) K/uL Eos # (Auto) 0.04 (0.00-0.50) K/uL Baso # (Auto) 0.03 (0.00-0.20) K/uL Immature Gran # (Auto) 0.03 (0.01-0.20) K/uL Sodium 140 (136-145) mmol/L Potassium 3.1 L (3.5-5.1) mmol/L Chloride 108 H (98-107) mmol/L Carbon Dioxide 21 (21-32) mmol/L Anion Gap 11 (3-11) BUN 8 (6-23) mg/dl Creatinine 0.90 (0.6-1.2) mg/dl Est Cr Clr Drug Dosing 90.3 ml/min eGFR 87.11 BUN/Creatinine Ratio 8.9 L (10-20) Glucose 140 H (70-99(Fasting)) mg/dl Calcium 8.7 (8.6-10.3) mg/dl Phosphorus 1.1 L* (2.5-4.9) mg/dl Magnesium 1.7 (1.7-2.4) mg/dl Total Bilirubin 0.3 (0.2-1.0) mg/dl AST 19 (13-39) U/L ALT 23 (7-52) U/L Alkaline Phosphatase 71 (34-104) U/L Total Creatine Kinase 44 (26-192) U/L Troponin I High Sens < 2.3 (0-14) pg/ml Total Protein 6.7 (6.0-8.3) gm/dl Albumin 3.9 (3.4-5.0) gm/dl Globulin 2.8 (2.5-4.0) gm/dl Albumin/Globulin Ratio 1.4 (0.9-2) HCG, Qual Negative (Negative) Ethyl Alcohol mg/dL < 10.0 (<10.0) mg/dl Administered Medications Discontinued Medications Carisoprodol (Carisoprodol 350 Mg Tablet) 350 mg PO QID KIRIT Stop: 12/07/24 08:59 Last Admin: 11/07/24 13:19 Dose: 350 mg Documented By: Admin: 11/07/24 09:17 Dose: 350 mg Documented By: EP Diphenhydramine HCl (Diphenhydramine 50 Mg/Ml Vial) 12.5 mg IV NOW STA Stop: 11/06/24 19:11 Last Admin: 11/06/24 19:13 Dose: 12.5 mg Documented By: BINDU Duloxetine HCl (Duloxetine Hcl 60 Mg Cap) 60 mg PO DAILY KIRIT Stop: 12/07/24 08:59 Last Admin: 11/07/24 09:12 Dose: 60 mg Documented By: JANAY Folic Acid (Folic Acid 1 Mg Tab) 1 mg PO DAILY KIRIT Stop: 12/07/24 08:59 Last Admin: 11/07/24 09:13 Dose: 1 mg Documented By: JANAY Gabapentin (Gabapentin 300 Mg Cap) 900 mg PO TID KIRIT Stop: 12/07/24 08:59 Last Admin: 11/07/24 13:19 Dose: 900 mg Documented By: Admin: 11/07/24 09:13 Dose: 900 mg Documented By: JANAY Gadobutrol (Gadobutrol 65ml Vial) 7.7 ml IV ONCE ONE Stop: 11/06/24 22:45 Last Admin: 11/06/24 22:45 Dose: 7.7 ml Documented By: ALVERTO Sodium Chloride (Nss) 1,000 mls @ 999 mls/hr IV .Q1H1M ONE Stop: 11/06/24 19:38 Last Infusion: 11/06/24 20:19 Dose: Infused Documented By: Admin: 11/06/24 18:44 Dose: 999 mls/hr Documented By: ANGELITA Potassium Phosphate 21 mmol/ (Sodium Chloride) 507 mls @ 145 mls/hr IV 2015 ONE Stop: 11/06/24 23:44 Last Infusion: 11/07/24 02:05 Dose: Infused Documented By: Infusion: 11/06/24 23:00 Dose: 145 mls/hr Documented By: Infusion: 11/06/24 22:55 Dose: 0 mls/hr Documented By: Admin: 11/06/24 21:19 Dose: 145 mls/hr Documented By: BINDU Prochlorperazine 10 mg/ (Syringe) 10 mls @ 5 mls/min IV Q6H PRN PRN Reason: Nausea And Vomiting Stop: 12/06/24 23:23 Last Admin: 11/07/24 00:41 Dose: 5 mls/min Documented By: TIMBO Magnesium Sulfate/Dextrose (Magnesium Sulfate / D5w) 1 gm in 100 mls @ 50 mls/hr IV ONE ONE Stop: 11/07/24 01:32 Last Infusion: 11/07/24 01:52 Dose: Infused Documented By: Admin: 11/06/24 23:52 Dose: 50 mls/hr Documented By: TIMBO Ioversol (Optiray 320 125ml) 118 ml IV ONCE ONE Stop: 11/06/24 19:22 Last Admin: 11/06/24 19:21 Dose: 118 ml Documented By: ETHEL Ketorolac Tromethamine (Ketorolac Tromethamine 15 Mg/Ml Vial) 15 mg IV NOW ONE Stop: 11/07/24 03:26 Last Admin: 11/07/24 03:42 Dose: 15 mg Documented By: TIMBO Levetiracetam (Levetiracetam 500 Mg/5 Ml Vial) 1,500 mg IV NOW STA Stop: 11/06/24 18:39 Last Admin: 11/06/24 18:54 Dose: 1,500 mg Documented By: ANGELITA Levetiracetam (Levetiracetam 500 Mg Tab) 1,500 mg PO BID KIRIT Stop: 12/07/24 08:59 Last Admin: 11/07/24 09:12 Dose: 1,500 mg Documented By: JANAY Lorazepam (Lorazepam 2 Mg/1 Ml Vial) 1 mg IV NOW STA Stop: 11/06/24 18:39 Last Admin: 11/06/24 18:44 Dose: 1 mg Documented By: ANGELITA Meloxicam (Meloxicam 7.5 Mg Tab) 7.5 mg PO DAILY KIRIT Stop: 12/07/24 08:59 Last Admin: 11/07/24 09:14 Dose: 7.5 mg Documented By: JANAY Metoclopramide HCl (Metoclopramide Hcl Inj 5 Mg/Ml 2 Ml Vial) 10 mg IV NOW STA Stop: 11/06/24 19:11 Last Admin: 11/06/24 19:13 Dose: 10 mg Documented By: BINDU Metoclopramide HCl (Metoclopramide Hcl Inj 5 Mg/Ml 2 Ml Vial) 10 mg IV NOW STA Stop: 11/06/24 21:30 Last Admin: 11/06/24 21:52 Dose: 10 mg Documented By: ANGELITA Miscellaneous ((Upadacitinib [Rinvoq] 15 Mg Tablet Extended Release 24 Hr)~Order Awaiting Action) 1 each N/A QS KIRIT Stop: 12/06/24 23:29 Last Admin: 11/07/24 09:17 Dose: Not Given Documented By: Admin: 11/06/24 23:30 Dose: Not Given Documented By: TIMBO Morphine Sulfate (Morphine Sulfate 4 Mg/Ml 1 Ml Carp\Vial) 4 mg IV NOW STA Stop: 11/06/24 19:51 Last Admin: 11/06/24 19:55 Dose: 4 mg Documented By: BINDU Morphine Sulfate (Morphine Sulfate 4 Mg/Ml 1 Ml Carp\Vial) 4 mg IV NOW STA Stop: 11/06/24 23:01 Last Admin: 11/06/24 23:25 Dose: 4 mg Documented By: TIMBO Ondansetron HCl (Ondansetron Inj 2 Mg/Ml 2 Ml Vial) 4 mg IV NOW STA Stop: 11/07/24 03:26 Last Admin: 11/07/24 03:42 Dose: 4 mg Documented By: TIMBO Oxycodone HCl (Oxycodone Hcl Ir 5 Mg Tab (Immediate Release)) 5 - 10 mg PO Q4H PRN PRN Reason: Pain Stop: 11/20/24 22:59 Last Admin: 11/07/24 13:20 Dose: 10 mg Documented By: Admin: 11/07/24 09:16 Dose: 5 mg Documented By: JANAY Potassium Phosphate (Potassium Phos 3 Mmol/1 Ml Infusion) 21 mmol IV NOW STA Stop: 11/06/24 19:51 Last Admin: 11/06/24 21:19 Dose: Not Given Documented By: BINDU Imaging Data Radiologist's Impression: Head CT 11/06/24 18:38 Clinical History: Seizure. Technique: Axial computed tomography images were obtained of the brain from the vertex to the skull base without intravenous contrast. Findings: There is no sign of intracranial hemorrhage. There is normal gibbs-white matter differentiation with no sign of acute or old infarction. No midline shift or other form of herniation is identified. There is no hydrocephalus. No obvious mass lesion is seen on this noncontrast examination. The visualized portions of the orbits and paranasal sinuses appear unremarkable. The mastoid air cells appear clear Impression: Unremarkable noncontrast CT of the brain Electronically signed by Angel Ozuna 11-06-2024 7:43 PM Chest CTA 11/06/24 18:46 CT pulmonary angiogram with IV contrast History: Chest pain COMPARISON: None TECHNIQUE: CT angiography of the chest was performed without IV contrast followed by IV contrast, including 3D post processing CTA image reconstruction. Dose reduction techniques were achieved by using automatic exposure control and/or adjustment of mA and/or kV according to patient size and/or use of iterative reconstruction technique. FINDINGS: Diagnostic quality: Adequate There is no evidence for pulmonary embolism. The heart is not enlarged. Intra atrial occlusion device. There is no pericardial effusion. There are no abnormally enlarged hilar or mediastinal lymph nodes. The central tracheobronchial tree is clear. The lungs are clear. There is no pleural effusion. Limited visualized upper abdomen. There is some mild ingested material in the lower esophagus at the time of scan. No destructive osseous changes are seen. IMPRESSION: No evidence for pulmonary embolism. Electronically signed by Nikita Madera 11-06-2024 7:46 PM Discharge Plan Visit Data Chief Complaint: Seizure Stated Complaint: SEIZURE ED Provider: Jm Medina Discharge Problem: Seizure, Hypophosphatemia, Behcet's disease Patient Disposition: Admitted As Inpatient Condition: Good Discharge Instructions Interventions: ED Discharge Assessment Last Done: 11/06/24 22:05
[2024-11-06 19:00] LABS: Hematocrit (blood only) 35.3 % (37.0-47.0); Hemoglobin 12.0 g/dl (12.0-16.0); Immature Granulocytes # (auto) 0.03 K/uL (0.01-0.20); Immature Granulocytes % (auto) 0.3 %; Mean Corpuscular Hemoglobin 28.8 pg (25.0-34.0); Mean Corpuscular Volume 84.9 fL (80.0-100.0); Platelet Count 333 K/uL (130-400); RDW Standard Deviation 38.5 fL (36.4-46.3); Red Blood Count 4.16 M/uL (4.20-5.40); White Blood Count 10.31 K/ul (4.8-10.8)
[2024-11-06] MEDS: diphenhydrAMINE 50 MG/ML VIAL IV STA (19:13)
[2024-11-06] MEDS: METOCLOPRAMIDE HCL INJ 5 MG/ML 2 ML VIAL IV STA ×2 (19:13→21:52)
[2024-11-06 19:15] LABS: Pregnancy Test, Serum Negative (Negative)
[2024-11-06 19:21] LABS: Anion Gap 11 (3-11); Blood Urea Nitrogen 8 mg/dl (6-23); Calcium 8.7 mg/dl (8.6-10.3); Carbon Dioxide 21 mmol/L (21-32); Chloride 108 mmol/L (98-107); Creatinine Clr Calc Pharmacy 90.3 ml/min; Glucose 140 mg/dl (70-99(Fasting)); Potassium 3.1 mmol/L (3.5-5.1); Sodium 140 mmol/L (136-145)
[2024-11-06] MEDS: OPTIRAY 320 125ml IV ONE (19:21)
[2024-11-06 19:29] LABS: Alanine Aminotransferase 23 U/L (7-52); Albumin Globulin Ratio 1.4 (0.9-2); Alkaline Phosphatase 71 U/L (34-104); Bilirubin,Total 0.3 mg/dl (0.2-1.0); Globulin 2.8 gm/dl (2.5-4.0); Magnesium 1.7 mg/dl (1.7-2.4); Total Protein 6.7 gm/dl (6.0-8.3)
--- NOTE | 2024-11-06 19:44 | CT Scan Report ---
Clinical History: Seizure. Technique: Axial computed tomography images were obtained of the brain from the vertex to the skull base without intravenous contrast. Findings: There is no sign of intracranial hemorrhage. There is normal gibbs-white matter differentiation with no sign of acute or old infarction. No midline shift or other form of herniation is identified. There is no hydrocephalus. No obvious mass lesion is seen on this noncontrast examination. The visualized portions of the orbits and paranasal sinuses appear unremarkable. The mastoid air cells appear clear Impression: Unremarkable noncontrast CT of the brain Electronically signed by Angel Ozuna 11-06-2024 7:43 PM
--- NOTE | 2024-11-06 19:46 | CT Scan Report ---
CT pulmonary angiogram with IV contrast History: Chest pain COMPARISON: None TECHNIQUE: CT angiography of the chest was performed without IV contrast followed by IV contrast, including 3D post processing CTA image reconstruction. Dose reduction techniques were achieved by using automatic exposure control and/or adjustment of mA and/or kV according to patient size and/or use of iterative reconstruction technique. FINDINGS: Diagnostic quality: Adequate There is no evidence for pulmonary embolism. The heart is not enlarged. Intra atrial occlusion device. There is no pericardial effusion. There are no abnormally enlarged hilar or mediastinal lymph nodes. The central tracheobronchial tree is clear. The lungs are clear. There is no pleural effusion. Limited visualized upper abdomen. There is some mild ingested material in the lower esophagus at the time of scan. No destructive osseous changes are seen. IMPRESSION: No evidence for pulmonary embolism. Electronically signed by Nikita Madera 11-06-2024 7:46 PM
[2024-11-06] MEDS: MoRPHine SULFATE 4 MG/ML 1 ML CARP\\VIAL IV STA ×2 (19:55→23:25)
--- NOTE | 2024-11-06 21:08 | History & Physical Report ---
Date of Service November 06, 2024 Assessment & Plan (1) Seizure: (2) Hypokalemia: (3) Hypophosphatemia: Plan 34-year-old female PMHx asthma, Behcet's disease, chronic pain syndrome, myalgia, IBS, seronegative RA, and syncope/seizure-like activity who presents for recurrent seizures over the past 3 weeks, with most recent being the day of arrival. ED evaluation with CBC without leukocytosis, H&H 12/35.3; CMP potassium 3.1, chloride 108, BUN/creatinine ratio 8.9, glucose 140, phosphorus 1.1, magnesium 1.7; troponin <2.3; negative; head CT without acute findings; chest CTA without evidence of PE.; Provided with 1L NSS, potassium phosphate 21 mmol, morphine 4 ayse IV, metoclopramide 10 mg IV, lorazepam 1 mg IV, Keppra 1500 mg IV, diphenhydramine 12.5 mg in ED. #Seizure H/o syncope/seizure like episodes, first occurring in 2023. No history of seizures as a child. She was started on Keppra at that time, but over the past 3 weeks she has had 3 seizure like episodes. ED provider discussed with neurology the case; neurologist recommended increase Keppra at time of admission. - CBC without leukocytosis; CMP potassium 3.1, chloride 108; phosphorus 1.1; CK pending - BMP am - UDS pending, ETOH pending - CT head unremarkable - Chest CTA without PE - MRI head w seizure protocol pending - Metoclopramide prn N/V (hold home Compazine given prolonged QTc) - Keppra increased from 1000 mg twice daily to 1500 mg - Lorazepam 1 mg IV every 5 minutes x 3 for active seizures - NOTIFY PROVIDER IF ACTIVE SEIZURE - Seizure precautions - Neuro consulted - appreciate input + recs #Hypokalemia Received potassium phosphate in ED. - K 3.1; Mg 1.7 - BMP am #Hypophosphatemia Asymptomatic currently, received potassium phosphate in ED. - Phosphate 1.1 - Repeat AM #Prolonged QT on EKG- EKG on admission with QT/QTc 430/565; Avoid further prolonging agents #Psych- Amitriptyline - continue #Chronic pain/Fibromyalgia- Carisoprodol, duloxetine, meloxicam, oxycodone - continue #Chronic abdominal pain- Gabapentin, Hyoscyamine sulfate - continue #Seronegative RA- Rinvoq was recently started 5 weeks ago, ?? relation - continue for now Dispo: Admit, PCU VTE prophylaxis: SCDs This document was dictated utilizing [email or web address]. Please excuse any g rammatical errors that may be secondary to use of this software. Admission and Anticipated Discharge Date Admission Date: 11/06/2024 History of Present Illness Chief Complaint: Seizure Primary Care Provider: Gabi Snider DO 34-year-old female PMHx asthma, Behcet's disease, chronic pain syndrome, myalgia, IBS, seronegative RA, and syncope/seizure-like activity who presents for recurrent seizures over the past 3 weeks, with most recent being the day of arrival. 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 She states that she could feel the seizure coming on and seizure broke within a few minutes after this. Then, on the day of arrival, she was dorm shopping with her cousin when she started to feel very exhausted and "just miserable". After this, she recalls telling her mother that she was going to have a seizure and then she did not recall the next events. Her mother states that the seizure lasted greater than 5 minutes, and was mainly localized to her upper extremities. She did foam at the mouth and was "breathing funny" during the episode. After the seizure broke, the patient was disoriented and slightly agitated for a few moments after. EMS was called. Patient states that at present she is feeling nauseous, and she is having generalized pain. She denies chest pain, SOB, palpitations, abdominal pain, diarrhea/constipation, LUTS, fever/chills, URI symptoms, numbness/tingling, or weakness. Her only change that she can identify is that she was recently started on Rinvoq approximately 5 weeks ago. Patient is unsure of seizure triggers. No family history of seizures. Patient did not having seizures until 2023. ED evaluation with CBC without leukocytosis, H&H 12/35.3; CMP potassium 3.1, chloride 108, BUN/creatinine ratio 8.9, glucose 140, phosphorus 1.1, magnesium 1.7; troponin <2.3; negative; head CT without acute findings; chest CTA without evidence of PE; EKG sinus tachycardia at 102 bpm.; Provided with 1L NSS, potassium phosphate 21 mmol, morphine 4 ayse IV, metoclopramide 10 mg IV, lorazepam 1 mg IV, Keppra 1500 mg IV, diphenhydramine 12.5 mg in ED. Please see Dr. Kramer's attestation for adjustments/additions to treatment plan. Allergies Allergy/AdvReac Type Severity Reaction Status Date / Time bee venom protein (honey bee) Allergy Severe ANAPHYLAXIS Verified 11/06/24 20:25 cefprozil Allergy Severe HIVES Verified 11/06/24 20:25 ciprofloxacin Allergy Severe HIVES Verified 11/06/24 20:25 sulfamethoxazole Allergy Severe Anaphylaxis Verified 11/06/24 20: trimethoprim Allergy Severe Anaphylaxis Verified 11/06/24 20:25 vancomycin Allergy Intermediate HIVES Verified 11/06/24 20:25 ceftriaxone Allergy Unknown HIVES Verified 11/06/24 20:25 baclofen AdvReac Severe loss of Verified 11/06/24 23:18 consciousness/severe sedation Home Medications Medication Instructions Recorded Confirmed Type prochlorperazine maleate 5 mg 5 mg PO TID PRN NAUSEA/VOMITING 12/10/21 11/06/24 History tablet (Compazine) duloxetine 60 mg capsule,delayed 60 mg PO DAILY #90 caps 06/13/22 11/06/24 Rx release amitriptyline 25 mg tablet 25 mg PO HS 11/06/24 11/06/24 History carisoprodol 350 mg tablet 350 mg PO QID 11/06/24 11/06/24 History ergocalciferol (vitamin D2) 1,250 1,250 mcg PO WK 11/06/24 11/06/24 History mcg (50,000 unit) capsule (Vitamin D2) folic acid 1 mg tablet 1 mg PO DAILY 11/06/24 11/06/24 History gabapentin 300 mg capsule 900 mg PO TID 11/06/24 11/06/24 History gabapentin 800 mg tablet 800 mg PO DIRECTED PRN NEEDED 11/06/24 11/06/24 History hyoscyamine sulfate 0.125 mg tablet 0.125 mg PO TID PRN ABD CRAMPING 11/06/24 11/06/24 History levetiracetam 1,000 mg tablet 1,000 mg PO BID 11/06/24 11/06/24 History meloxicam 7.5 mg tablet 7.5 mg PO DAILY 11/06/24 11/06/24 History oxycodone 5 mg tablet 5 - 10 mg PO Q4H PRN Pain 11/06/24 11/06/24 History upadacitinib 15 mg tablet,extended 15 mg PO DAILY 11/06/24 11/06/24 History release 24 hr (Rinvoq) Past Med/Surg History Problem List (Updated 11/06/24 @ 21:58 by Noemí Velarde PA-C) Hypophosphatemia Hypokalemia Seizure Fracture of metatarsal of right foot, closed Right ankle sprain Ankle sprain Loss of consciousness Behcet's disease Diarrhea Leg pain, bilateral Chronic pain Fatigue Dysautonomia Abdominal pain Medical History Hx of Lyme disease Adverse reaction to anesthetic agent Nausea Irregular heartbeat Prolonged QT Anemia Closed osteochondral fracture of right patella Bilateral nephrolithiasis Anxiety Chronic neck pain no ROM limitations Dysautonomia dating back to 2014 records (on anesthesia preop evaluation from [place] [facility] [place] Migraine Asthma childhood Acute pyelonephritis (10/03/12) Closure of atrial septal defect (10/03/12) Surgical History H/O excision of mass (04/21/15) Excision of abdominal wall scar tissue 04/21/15 Dr. Lopez Nausea and vomiting after administration of anesthetic agent History of cystoscopy X3 Hx of abdominal surgery BENIGN ABDOMINAL MASS REMOVED History of cholecystectomy History of appendectomy History of colonoscopy History of esophagogastroduodenoscopy (EGD) History of tonsillectomy History of endoscopic sinus surgery Hx of percutaneous transcatheter closure of congenital ASD 2005 Hx of appendectomy Hx of cholecystectomy Family History Mother Family history of reaction to anesthesia nausea/vomiting Hypertension Grandmother (Paternal) Family history of pancreatic cancer Grandfather (Maternal) Family history of diabetes mellitus Stroke Family history of bleeding disorder Father Hypertension Grandmother (Maternal) Stroke Grandfather (Paternal) Stroke Uncle Family history of bleeding disorder Other Breast cancer Cancer Heart disease No family history of adverse response to anesthesia Social History Smoking Status: Never smoker Second Hand Exposure: No; Do You Dip or Chew Tobacco: No; Hx Alcohol Use: No Hx Substance Use: No Preferred Language: Argentine Communication Ability: Effective Sample Maker Required: No Beliefs That Will Affect Care: None marital status: Single Current Living Situation: Family Current Living Situation Comment: Lives with parents current occupational status: employed 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, [employer] Other Information That Helps Us Care for You: No Feels Safe at Home: Yes Safety Concerns: Feels Safe At This Time Diet: regular Assistive Devices: None Review of Systems Review of Systems: All systems reviewed & are unremarkable except as noted in Subjective Physical Exam Physical Exam: General: No acute distress, appears uncomfortable Skin: Warm and dry Head: Normocephalic, atraumatic Eyes: PERRL, conjunctivae clear, sclera non-icteric ENT: External ear and ear canal without swelling; nose atraumatic; good dentition, tongue normal appearance, pharynx normal Neck: Supple, no LAD Cardio: RRR, no M/G/R, S1 and S2 normal Resp: No respiratory distress, Lungs CTA in all lobes bilaterally, no wheezes, rales, or rhonchi Abdomen: Soft, symmetric, nontender; No masses or hepatosplenomegaly; Bowel sounds normoactive MSK: No deformities; pulses palpable and equal; no edema. Neuro: Awake, alert; Sensation intact bilaterally; CN grossly intact Psych: Appropriate mood and affect; good judgement and insight. Male family member and mother present in room at time of visit. Results & Data Results & Data Vital Signs (Past 12 Hours) Vital Signs Pulse Resp BP Pulse Ox O2 Del Method 11/06/24 18:35 105 H 17 132/97 98 Room Air Laboratory Results 11/06/24 18:48 WBC 10.31 RBC 4.16 L Hgb 12.0 Hct 35.3 L MCV 84.9 MCH 28.8 MCHC 34.0 RDW Std Deviation 38.5 RDW Coeff of Davy 12.6 Plt Count 333 MPV 10.3 Immature Gran % (Auto) 0.3 Neut % (Auto) 75.8 Lymph % (Auto) 18.3 [place] % (Auto) 4.9 Eos % (Auto) 0.4 Baso % (Auto) 0.3 Neut # (Auto) 7.81 H Lymph # (Auto) 1.89 [place] # (Auto) 0.51 Eos # (Auto) 0.04 Baso # (Auto) 0.03 Immature Gran # (Auto) 0.03 Sodium 140 Potassium 3.1 L Chloride 108 H Carbon Dioxide 21 Anion Gap 11 BUN 8 Creatinine 0.90 Est Cr Clr Drug Dosing 90.3 eGFR 87.11 BUN/Creatinine Ratio 8.9 L Glucose 140 H Calcium 8.7 Phosphorus 1.1 L* Magnesium 1.7 Total Bilirubin 0.3 AST 19 ALT 23 Alkaline Phosphatase 71 Troponin I High Sens < 2.3 Total Protein 6.7 Albumin 3.9 Globulin 2.8 Albumin/Globulin Ratio 1.4 HCG, Qual Negative Diagnostic Findings Head CT 11/06/24 18:38 Clinical History: Seizure. Technique: Axial computed tomography images were obtained of the brain from the vertex to the skull base without intravenous contrast. Findings: There is no sign of intracranial hemorrhage. There is normal gibbs-white matter differentiation with no sign of acute or old infarction. No midline shift or other form of herniation is identified. There is no hydrocephalus. No obvious mass lesion is seen on this noncontrast examination. The visualized portions of the orbits and paranasal sinuses appear unremarkable. The mastoid air cells appear clear Impression: Unremarkable noncontrast CT of the brain Electronically signed by Angel Ozuna 11-06-2024 7:43 PM Chest CTA 11/06/24 18:46 CT pulmonary angiogram with IV contrast History: Chest pain COMPARISON: None TECHNIQUE: CT angiography of the chest was performed without IV contrast followed by IV contrast, including 3D post processing CTA image reconstruction. Dose reduction techniques were achieved by using automatic exposure control and/or adjustment of mA and/or kV according to patient size and/or use of iterative reconstruction technique. FINDINGS: Diagnostic quality: Adequate There is no evidence for pulmonary embolism. The heart is not enlarged. Intra atrial occlusion device. There is no pericardial effusion. There are no abnormally enlarged hilar or mediastinal lymph nodes. The central tracheobronchial tree is clear. The lungs are clear. There is no pleural effusion. Limited visualized upper abdomen. There is some mild ingested material in the lower esophagus at the time of scan. No destructive osseous changes are seen. IMPRESSION: No evidence for pulmonary embolism. Electronically signed by Nikita Madera 11-06-2024 7:46 PM Medications Administered 1L NSS Lorazepam 1 mg IV Keppra 1500 mg IV Metoclopramide 10 mg IV Diphenhydramine 12.5 mg IV Morphine sulfate 4 mg IV Potassium phosphate 20 mmol ECG Additional Comments: Sinus tachycardia with ST and T wave abnormalities, prolonged QT 102 bpm, IN 136, QRS 90, QT/QTc 430/565, PRT 58/28/21 Code Status & VTE Plan Code Status Full Supervising Physician Co-Signing Physician Notes Patient seen and examined, chart reviewed, case discussed with JT Velarde I agree with the assessment and plan as documented above. In brief, patient is a 34-year-old female presenting with seizures ongoing for the last 3 weeks. Patient with known seizures since 2023. On physical exam she is resting comfortably, no acute distress, answering questions appropriately, no neurologic findings + S1, S2, regular, no murmur/rub/gallops Lungs CTA anteriorly Abdomen soft, nontender, nondistended Labs and images reviewed Assessment/plan 34-year-old female presenting with seizure. Compliant with Keppra. Has had 3 seizures over the last several weeks Will check MRI Neurology consult appreciated Increase Keppra Remainder as above PG Care Time/CCT Total # of Minutes Spent Total Time Spent with Patient: Total time spent is greater than 50% in coordination of care (as documented) at patient's floor/unit and/or counseling patient: Coding Level of Care Code 04544 INT INP/OBS CARE 3/75MIN Diagnoses Seizure R56.9 Hypokalemia E87.6 Hypophosphatemia E83.39
[2024-11-06] MEDS: POTASSIUM PHOSPHATE 21 MMOL in SODIUM CHLORIDE 0.9% 500 ML IV ONE (21:19)
[2024-11-06] MEDS: POTASSIUM PHOS 3 MMOL/1 ML INFUSION IV STA (21:19)
[2024-11-06 22:17] LABS: Creatine Kinase 44 U/L (26-192)
[2024-11-06] MEDS: GADOBUTROL 65ML VIAL IV ONE (22:45)
[2024-11-06] MEDS ORDERED: GABAPENTIN 800 MG TAB PO PRN (23:00)
[2024-11-06] MEDS ORDERED: MELATONIN 3 MG TAB PO PRN (23:00)
[2024-11-06] MEDS ORDERED: HYOSCYAMINE SULFATE 0.125 MG TAB PO PRN (23:00)
[2024-11-06] MEDS ORDERED: POLYETHYLENE (MIRALAX) 17 GM PACK PO PRN (23:00)
[2024-11-06] MEDS ORDERED: METOCLOPRAMIDE HCL INJ 5 MG/ML 2 ML VIAL IV PRN (23:00)
[2024-11-06] MEDS: MAGNESIUM SULFATE / D5W 1 GM/100 ML BAG IV ONE (23:52)
[2024-11-07] MEDS: PROCHLORPERAZINE 10 MG in SYRINGE 8 ML IV PRN (00:41)
[2024-11-07 00:45] LABS: Amphetamines+Metham, Urine Neg (Neg); MDMA (Ecstacy), Urine Neg (Neg); Marijuana, Urine Neg (Neg)
--- NOTE | 2024-11-07 01:09 | Magnetic Resonance Report ---
Exam(s): MRI OTHER W/WO Contrast IV Amt: 7.7cc gadavist inj. left iv at 2240 hrs. EXAM: MR Head Without and With Intravenous Contrast CLINICAL HISTORY: Reason for exam: Seizures. TECHNIQUE: Magnetic resonance images of the head/brain without and with intravenous contrast in multiple planes. CONTRAST: Patient received 7.7cc gadavist inj. left iv at 2240 hrs. of IV contrast COMPARISON: No relevant prior studies available. FINDINGS: Brain: Unremarkable. No mass. No hemorrhage. No acute infarct. Ventricles: Unremarkable. No ventriculomegaly. Bones/joints: Unremarkable. No acute fracture. Sinuses: Unremarkable as visualized. No acute sinusitis. Mastoid air cells: Unremarkable as visualized. No mastoid effusion. Orbits: Unremarkable as visualized. IMPRESSION: Normal head/brain MRI. Electronically signed by: Bonifacio Slade MD 11/07/24 01:06 AM
[2024-11-07 03:21] VITALS: RESP 16
[2024-11-07] MEDS: ONDANSETRON INJ 2 MG/ML 2 ML VIAL IV STA (03:42)
[2024-11-07] MEDS: KETOROLAC TROMETHAMINE 15 MG/ML VIAL IV ONE (03:42)
[2024-11-07 06:16] LABS: Anion Gap 7.0 (3-11); Blood Urea Nitrogen 5.0 mg/dl (6-23); Calcium 8.0 mg/dl (8.6-10.3); Carbon Dioxide 23.0 mmol/L (21-32); Chloride 110.0 mmol/L (98-107); Creatinine Clr Calc Pharmacy 109.6 ml/min; Glucose 109.0 mg/dl (70-99(Fasting)); Potassium 3.6 mmol/L (3.5-5.1); Sodium 140.0 mmol/L (136-145)
[2024-11-07] MEDS: levETIRAcetam 500 MG TAB PO SCH (09:12)
[2024-11-07] MEDS: GABAPENTIN 300 MG CAP PO SCH (09:13)
[2024-11-07] MEDS: FOLIC ACID 1 MG TAB PO SCH (09:13)
[2024-11-07] MEDS: MELOXICAM 7.5 MG TAB PO SCH (09:14)
--- NOTE | 2024-11-07 09:16 | Neurology Consultation ---
Date of Consultation November 07, 2024 Assessment & Plan (1) Hypophosphatemia: (2) Seizure: History of Present Illness Attending Physician: Geoffrey Meraz MD, PhD History of Present Illness S: pt doing well. no seizures. mri brain normal. pt is followed by [facility] neurology for seizure. pt with similar events as before. pt with hypophosphatemia. chart reviewed. admission HPI: 34-year-old female PMHx asthma, Behcet's disease, chronic pain syndrome, myalgia, IBS, seronegative RA, and syncope/seizure-like activity who presents for recurrent seizures over the past 3 weeks, with most recent being the day of arrival. 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 She states that she could feel the seizure coming on and seizure broke within a few minutes after this. Then, on the day of arrival, she was dorm shopping with her cousin when she started to feel very exhausted and "just miserable". After this, she recalls telling her mother that she was going to have a seizure and then she did not recall the next events. Her mother states that the seizure lasted greater than 5 minutes, and was mainly localized to her upper extremities. She did foam at the mouth and was "breathing funny" during the episode. After the seizure broke, the patient was disoriented and slightly agitated for a few moments after. EMS was called. Patient states that at present she is feeling nauseous, and she is having generalized pain. She denies chest pain, SOB, palpitations, abdominal pain, diarrhea/constipation, LUTS, fever/chills, URI symptoms, numbness/tingling, or weakness. Her only change that she can identify is that she was recently started on Rinvoq approximately 5 weeks ago. Patient is unsure of seizure triggers. No family history of seizures. Patient did not having seizures until 2023. ED evaluation with CBC without leukocytosis, H&H 12/35.3; CMP potassium 3.1, chloride 108, BUN/creatinine ratio 8.9, glucose 140, phosphorus 1.1, magnesium 1.7; troponin <2.3; negative; head CT without acute findings; chest CTA without evidence of PE; EKG sinus tachycardia at 102 bpm.; Provided with 1L NSS, potassium phosphate 21 mmol, morphine 4 ayse IV, metoclopramide 10 mg IV, lorazepam 1 mg IV, Keppra 1500 mg IV, diphenhydramine 12.5 mg in ED. Allergies Allergy/AdvReac Type Severity Reaction Status Date / Time bee venom protein (honey bee) Allergy Severe ANAPHYLAXIS Verified 11/06/24 20:25 cefprozil Allergy Severe HIVES Verified 11/06/24 20:25 ciprofloxacin Allergy Severe HIVES Verified 11/06/24 20:25 sulfamethoxazole Allergy Severe Anaphylaxis Verified 11/06/24 20:25 trimethoprim Allergy Severe Anaphylaxis Verified 11/06/24 20:25 vancomycin Allergy Intermediate HIVES Verified 11/06/24 20:25 ceftriaxone Allergy Unknown HIVES Verified 11/06/24 20:25 baclofen AdvReac Severe loss of Verified 11/06/24 23:18 consciousness/severe sedation Home Medications Medication Instructions Recorded Confirmed Type prochlorperazine maleate 5 mg 5 mg PO TID PRN NAUSEA/VOMITING 12/10/21 11/06/24 History tablet (Compazine) duloxetine 60 mg capsule,delayed 60 mg PO DAILY #90 caps 06/13/22 11/06/24 Rx release amitriptyline 25 mg tablet 25 mg PO HS 11/06/24 11/06/24 History carisoprodol 350 mg tablet 350 mg PO QID 11/06/24 11/06/24 History ergocalciferol (vitamin D2) 1,250 1,250 mcg PO WK 11/06/24 11/06/24 History mcg (50,000 unit) capsule (Vitamin D2) folic acid 1 mg tablet 1 mg PO DAILY 11/06/24 11/06/24 History gabapentin 300 mg capsule 900 mg PO TID 11/06/24 11/06/24 History gabapentin 800 mg tablet 800 mg PO DIRECTED PRN NEEDED 11/06/24 11/06/24 History hyoscyamine sulfate 0.125 mg tablet 0.125 mg PO TID PRN ABD CRAMPING 11/06/24 11/06/24 History levetiracetam 1,000 mg tablet 1,000 mg PO BID 11/06/24 11/06/24 History meloxicam 7.5 mg tablet 7.5 mg PO DAILY 11/06/24 11/06/24 History oxycodone 5 mg tablet 5 - 10 mg PO Q4H PRN Pain 11/06/24 11/06/24 History upadacitinib 15 mg tablet,extended 15 mg PO DAILY 11/06/24 11/06/24 History release 24 hr (Rinvoq) Patient History Medical History Hx of Lyme disease Adverse reaction to anesthetic agent Nausea Irregular heartbeat Prolonged QT Anemia Closed osteochondral fracture of right patella Bilateral nephrolithiasis Anxiety Chronic neck pain no ROM limitations Dysautonomia dating back to 2014 records [place]on anesthesia preop [place] [facility] [place] Migraine Asthma childhood Acute pyelonephritis (10/03/12) Closure of atrial septal defect (10/03/12) Surgical History H/O excision of mass (04/21/15) Excision of abdominal wall scar tissue 04/21/15 Dr. Lopez Nausea and vomiting after administration of anesthetic agent History of cystoscopy X3 Hx of abdominal surgery BENIGN ABDOMINAL MASS REMOVED History of cholecystectomy History of appendectomy History of colonoscopy History of esophagogastroduodenoscopy (EGD) History of tonsillectomy History of endoscopic sinus surgery Hx of percutaneous transcatheter closure of congenital ASD 2005 Hx of appendectomy Hx of cholecystectomy Family History Mother Family history of reaction to anesthesia nausea/vomiting Hypertension Grandmother (Paternal) Family history of pancreatic cancer Grandfather (Maternal) Family history of diabetes mellitus Stroke Family history of bleeding disorder Father Hypertension Grandmother (Maternal) Stroke Grandfather (Paternal) Stroke Uncle Family history of bleeding disorder Other Breast cancer Cancer Heart disease No family history of adverse response to anesthesia Social History Smoking Status: Never smoker Second Hand Exposure: No; Do You Dip or Chew Tobacco: No; Hx Alcohol Use: No Hx Substance Use: No Preferred Language: Portuguese Communication Ability: Effective Machine Stuffer Required: No Beliefs That Will Affect Care: None marital status: Single Current Living Situation: Family Current Living Situation Comment: Lives with parents current occupational status: employed 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 Coord: intact FNT b/l DTR: 2+ sym b/l upper limbs. Impression: 34 yo female with seizure like event in setting of hypophosphatemia. currently doing well. Hypophosphatemia can certainly trigger seizure event. Recommendations: mri brain negative. no need for EEG continue keppra 1500mg po bid she can f/u with her neurologist as planned at [facility]. avoid electrolyte imbalance. phosphate corrected. will sign off. Chart reviewed I have spent more than 50% educating patient about potential diagnosis and neurological evaluation and coordinating care with patient's treatment team. Total time spent (including chart review and coordination of care): 45 min (this includes chart review). Results & Data Vital Signs (Past 12 Hours) Vital Signs Temp Pulse Pulse Resp BP BP Pulse Ox 11/07/24 08:10 36.8 C 103 H 16 93/58 L 97 11/07/24 03:20 36.9 C 107 H 16 105/67 96 11/06/24 23:21 100 H 11/06/24 23:00 36.7 C 110 H 20 123/75 97 11/06/24 22:00 106 H 18 109/75 97 O2 Del Method 11/07/24 08:10 Room Air 11/07/24 03:20 Room Air 11/06/24 23:21 11/06/24 23:00 Room Air 11/06/24 22:00 Room Air PG Care Time/CCT Total # of Minutes Spent Total Time Spent with Patient: Total time spent is greater than 50% in coordination of care (as documented) at patient's floor/unit and/or counseling patient: Coding Level of Care Code 84938 IN/OBS CONSULT LVL 3,45M Diagnoses Hypophosphatemia E83.39 Seizure R56.9
[2024-11-07] MEDS: CARISOPRODOL 350 MG TABLET PO SCH (09:17)
[2024-11-07 12:21] VITALS: BP 107/71; PULSE 106; TEMP 98.6; O2SAT 98
--- NOTE | 2024-11-07 17:38 | Electrocardiogram Report ---
Test Reason : Blood Pressure : */* mmHG Vent. Rate : 102 BPM Atrial Rate : 102 BPM P-R Int : 136 ms QRS Dur : 90 ms QT Int : 434 ms P-R-T Axes : 58 28 21 degrees QTcB Int : 565 ms Sinus tachycardia Prolonged QT Abnormal ECG When compared with ECG of 03-Dec-2021 15:53, T wave inversion more evident in Inferior leads Inverted T waves have replaced nonspecific T wave abnormality in Anterior leads QT has lengthened Confirmed by Nikita Hwang ([id number]) on 11/07/2024 5:37:38 PM Referred By: REFERRED SELF Confirmed By: Nikita Hwang
--- NOTE | 2024-11-07 18:03 | Discharge Summary ---
Discharge Summary Date of Service November 07, 2024 Principal Dx & Hospital Course #1 = Principal Diagnosis (1) Hypokalemia: To address acute hypokalemia, patient received KPO4 21 mmol IV x 1 dose (11/06/2024, 9:19pm). Acute hypokalemia subsequently RESOLVED with post- supplement K 3.6 mmol/L (11/07/2024, 5:27am). Patient was advised to undergo repeat K level testing with her PCP Dr. Gabi Snider within 5-7 days of hospital discharge, as patient's chronic daily bouts of watery, non-bloody, non- oily diarrhea is likely to recur, and which is likely to result in recurrent acute hypokalemia given that a patient's stool is rich in potassium. In the interim, patient was advised to increase her oral intake of daily potassium to 3.5 grams of potassium per day by increasing her daily intake of green vegetables and banana. Patient reports that she will comply with this recommendation. Of final note, patient was advised to see her [facility] Board Handler Dr. Lynn Lima within 5-7 days of hospital discharge, to coordinate completion of her evaluation for possible Crohn's Disease with GI Service @ [facility] as patient was started on Rinvoq 15mg PO daily ~5 weeks ago (to treat presumed Crohn's disease by Dr. Lima), as undertreated Crohn's Disease will most likely lead to persistence of patient's chronic daily bouts of watery, non-bloody, non-oily diarrhea. Patient reports that she will comply with this recommendation. (2) Hypophosphatemia: To address acute hypophosphatemia, patient received KPO4 21 mmol IV x 1 dose (11/06/2024, 9:19pm). Acute hypophosphatemia subsequently RESOLVED with post- supplement PO4 3.3 mg/dL (11/07/2024, 5:27am). Patient was advised to undergo repeat PO4 level testing with her PCP Dr. Gabi Snider within 5-7 days of hospital discharge, as patient's chronic daily bouts of watery, non-bloody, non- oily diarrhea is likely to recur, and which is likely to result in recurrent acute hypophosphatemia given that a patient's stool is rich in phosphorus. In the interim, patient was advised to increase her oral intake of red meats like beef and beef liver; salmon/sardines, and beans/lentils, all of which are rich in phosphorus. Patient reports that she will comply with this recommendation. Of final note, patient was advised to see her [facility] Board Handler Dr. Lynn Lima within 5-7 days of hospital discharge, to coordinate completion of her evaluation for possible Crohn's Disease with GI Service @ [facility] as patient was started on Rinvoq 15mg PO daily ~5 weeks ago (to treat presumed Crohn's disease by Dr. Lima), as undertreated Crohn's Disease will most likely lead to persistence of patient's chronic daily bouts of watery, non-bloody, non-oily diarrhea. Patient reports that she will comply with this recommendation. (3) Acute dehydration: To address acute dehydration, patient received 1 liter of 0.9% NS @ 999 mL/hr (11/06/2024, 6:44pm) and a regular diet. Acute dehydration subsequently RESOLVED. Patient was advised to drink at least 8 ounces of water per hour while awake, in order to maintain hydration status. Specifically, patient was advised to take an empty milk gallon jug and to fill it up with water, and to drink from this water-filled milk gallon jug only, in order to confirm that patient is drinking at least 8 ounces of water per hour while awake. Patient reports that she will comply with this recommendation. Of final note, patient was advised to see her [facility] Board Handler Dr. Lynn Lima within 5-7 days of hospital discharge, to coordinate completion of her evaluation for possible Crohn's Disease with GI Service @ [facility] as patient was started on Rinvoq 15mg PO daily ~5 weeks ago (to treat presumed Crohn's disease by Dr. Lima), as undertreated Crohn's Disease will most likely lead to persistence of patient's chronic daily bouts of watery, non-bloody, non-oily diarrhea. Patient reports that she will comply with this recommendation. (4) Seizure: To address acute seizure, patient received her home-scheduled keppra 1,500mg PO bid while in [facility]. Patient will continue this medication on hospital discharge. In fact, patient's [facility], [address] [place] [address], [place] [address], received an electronic prescription for keppra 1,500mg PO bid, #60 tablets, no refills, on 11/07/2024, prior to patient being discharged back to her home on 11/07/2024. Patient was also advised to follow up with her [facility] Neurology Service within 5-7 days of hospital discharge. Patient reports that she will comply with this recommendation. Plan 34 years old female with PMH of FULL CODE @ home, overweight with BMI 28.4 (height 162.6 cm; weight 75.1 kg), mild intermittent asthma, never intubated or mechanically ventilated, not on home steroids, home oxygen, home nebulizer, home metered dose inhaler, Behcet's disease (diagnosed several years ago, [facility] Board Handler Dr. Lynn Lima), chronic pain syndrome on amitriptyline 25mg PO qhs, carisoprodol 350mg PO bid, myalgia, duloxetine 60mg PO daily, gabapentin 900mg PO tid, seronegative RA, chronic daily bouts of watery, non-bloody, non-oily diarrhea with suspected Crohn's disease (undergoing workup, [facility] Board Handler Dr. Lynn Lima coordinates GI workup for suspected Crohn's disease, and who has empirically started patient on Rinvoq 15mg PO daily ~5 weeks ago), and seizure disorder (diagnosed ~2 years ago, [facility]) on keppra 1500mg PO bid, who came to [facility] ER on 11/06/2024 with complaints of 1. 5 episodes of large volume, watery, non-bloody, non-oily diarrhea, without nausea/vomit/abdominal pain/pelvic pain on Monday (11/05/2024). 2. 2 episodes of large volume, watery, non-bloody, non-oily diarrhea, without nausea/vomit/abdominal pain/pelvic pain on Monday (11/06/2024). 3. feeling dizzy, lightheaded, and weak while dorm shopping with her niece on Monday (11/06/2024). 4. seizure for 1 minute at her home in her bedroom with syncope, no fall, no trauma, no loss of fecal continence, no loss of urinary continence, no tongue bite/laceration, no post-ictal confusion. In [facility] ER, patient was afebrile @ 36.7 degrees Celsius (11/06/2024, 11:00pm), HR 105, RR 17, O2 sat 98% on room air, and BP 132/97 (11/06/2024, 6:35pm). Exam was noted for the absence of myoclonus, tremors, tics, diaphoresis, confusion, lethargy. Labs in [facility] ER included: WBC 10.31, N76 L18 M5, Hb 12.0, MCV 84.9, MCHC 34.0, platelet 333 (11/06/2024, 6:48pm). Na 140, K 3.1, BUN 8, creatinine 0.90, glucose 140, Ca 8.7, PO4 1.1, Mg 1.7, AST 19, ALT 23, ALK PHOS 71, TBili 0.3 (11/06/2024, 6:48pm). HCG negative (11/06/2024, 6:48pm). Urine drug screen (11/06/2024, 11:20pm): opiates+ Additional testing in [facility] ER included: CT brain without IV contrast (11/06/2024, 6:38pm): 1. No acute bleed, mass, or midline shift. CTA chest (11/06/2024, 6:46pm): 1. No PE. MRI brain with/without contrast (11/06/2024, 9:14pm): 1. No acute bleed, mass, or midline shift. Patient was subsequently admitted to the inpatient hospitalist service @ [facility] on 11/06/2024 with the following diagnoses: 1. Acute hypokalemia with K 3.1 mmol/L (11/06/2024, 6:48pm), due to 5 episodes of diarrhea (11/05/2024) and 2 episodes of diarrhea (11/06/2024), due in turn, to presumed Crohn's disease. 2. Acute hypophosphatemia with PO4 1.1 mg/dL (11/06/2024, 6:48pm), due to 5 episodes of diarrhea (11/05/2024) and 2 episodes of diarrhea (11/06/2024), due in turn, to presumed Crohn's disease. 3. Acute dehydration, due to 5 episodes of diarrhea (11/05/2024) and 2 episodes of diarrhea (11/06/2024), due in turn, to presumed Crohn's disease. 4. Acute seizure (11/06/2024) at home, most likely precipitated by (a) acute hypokalemia with K 3.1 mmol/L (11/06/2024, 6:48pm) and (b) acute hypoph osphatemia with PO4 1.1 mg/dL (11/06/2024, 6:48pm). #Seizure H/o syncope/seizure like episodes, first occurring in 2023. No history of seizures as a child. She was started on Keppra at that time, but over the past 3 weeks she has had 3 seizure like episodes. ED provider discussed with neurology the case; neurologist recommended increase Keppra at time of admission. - CBC without leukocytosis; CMP potassium 3.1, chloride 108; phosphorus 1.1; CK pending - BMP am - UDS pending, ETOH pending - CT head unremarkable - Chest CTA without PE - MRI head w seizure protocol pending - Metoclopramide prn N/V (hold home Compazine given prolonged QTc) - Keppra increased from 1000 mg twice daily to 1500 mg - Lorazepam 1 mg IV every 5 minutes x 3 for active seizures - NOTIFY PROVIDER IF ACTIVE SEIZURE - Seizure precautions - Neuro consulted - appreciate input + recs #Hypokalemia Received potassium phosphate in ED. - K 3.1; Mg 1.7 - BMP am #Hypophosphatemia Asymptomatic currently, received potassium phosphate in ED. - Phosphate 1.1 - Repeat AM #Prolonged QT on EKG- EKG on admission with QT/QTc 430/565; Avoid further prolonging agents #Psych- Amitriptyline - continue #Chronic pain/Fibromyalgia- Carisoprodol, duloxetine, meloxicam, oxycodone - continue #Chronic abdominal pain- Gabapentin, Hyoscyamine sulfate - continue #Seronegative RA- Rinvoq was recently started 5 weeks ago, ?? relation - continue for now Dispo: Admit, PCU VTE prophylaxis: SCDs This document was dictated utilizing [employer]. Please excuse any grammatical errors that may be secondary to use of this software. Admission HPI Per Admitting Provider 34-year-old female PMHx asthma, Behcet's disease, chronic pain syndrome, myalgia, IBS, seronegative RA, and syncope/seizure-like activity who presents for recurrent seizures over the past 3 weeks, with most recent being the day of arrival. 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 She states that she could feel the seizure coming on and seizure broke within a few minutes after this. Then, on the day of arrival, she was dorm shopping with her cousin when she started to feel very exhausted and "just miserable". After this, she recalls telling her mother that she was going to have a seizure and then she did not recall the next events. Her mother states that the seizure lasted greater than 5 minutes, and was mainly localized to her upper extremities. She did foam at the mouth and was "breathing funny" during the episode. After the seizure broke, the patient was disoriented and slightly agitated for a few moments after. EMS was called. Patient states that at present she is feeling nauseous, and she is having generalized pain. She denies chest pain, SOB, palpitations, abdominal pain, diarrhea/constipation, LUTS, fever/chills, URI symptoms, numbness/tingling, or weakness. Her only change that she can identify is that she was recently started on Rinvoq approximately 5 weeks ago. Patient is unsure of seizure triggers. No family history of seizures. Patient did not having seizures until 2023. ED evaluation with CBC without leukocytosis, H&H 12/35.3; CMP potassium 3.1, chloride 108, BUN/creatinine ratio 8.9, glucose 140, phosphorus 1.1, magnesium 1.7; troponin <2.3; negative; head CT without acute findings; chest CTA without evidence of PE; EKG sinus tachycardia at 102 bpm.; Provided with 1L NSS, potassium phosphate 21 mmol, morphine 4 ayse IV, metoclopramide 10 mg IV, lorazepam 1 mg IV, Keppra 1500 mg IV, diphenhydramine 12.5 mg in ED. Please see Dr. Kramer's attestation for adjustments/additions to treatment plan. Discharge Exam Constitutional General: Comfortable, coherent, cooperative. Awake, alert. Not confused, lethargic, or obtunded. Patient speaks in complete, fluent, and articulate sentences without pause, interruption, cough, or wheeze. HEENT: Normocephalic, atraumatic. Pupils equally round and reactive to light. No nystagmus, gaze paresis, anisocoria, miosis, mydriasis, hyphema, scleral injection, conjunctivitis, or pterygium. No otorrhea. No pharyngeal erythema, edema, or discharge. Neck: Supple, no stridor, bruit, goiter, or hepato-jugular reflux. Jugular venous pressure is estimated to be 3 cm above the sternal angle of Mendez, which in turn, is 5 cm above the level of the right atrium; with jugular venous pressure estimated to be 8 cm, then, there is no jugular venous distention on 11/07/2024. Lymphatics: No cervical (anterior/posterior), supraclavicular, infraclavicular, axillary, epitrochlear, or inguinal adenopathy. Chest: Symmetric rise and fall with respirations. Non-tender to palpation. Lungs: Clear to auscultation and percussion. No audible expiratory wheeze, egophony, pectoriloquy, increase in tactile fremitus, or flatness/dullness to percussion at the bases. Heart: RRR. S1 and S2 noted. No S3 or S4 summation gallop. No tripartite friction rub. Grade II/ early systolic murmur @ LLSB without radiation to the carotids, axilla, or back, and which remains invariant in regards to the respiratory cycle. Abdomen: Soft, non-distended, non-tender. No rebound, guarding, Huff's sign, or organomegaly. Bowel sounds auscultated in all 4 quadrants. Extremities: No clubbing, cyanosis, or edema in upper extremities or lower extremities bilaterally. 2+ pedal pulses bilaterally. Skin: No decubitus ulcer or enanthem. Genito-urinary: No urethral discharge. No medrano catheter. Neurology: Alert and oriented in regards to person, place, time, and situation. DTR+. 5/5 motor strength in all 4 extremities, both proximally and distally. No myoclonus, tremors, or tics. Psychiatry: No homicidal ideation. No suicidal ideation. No flat affect; smiles appropriately. Discharge Plan Discharge Items Patient Disposition: Home - Self-Care Reason For Visit: SEIZURES Discharge Diagnosis: 1. Recurrent seizure due to acute hypokalemia with K 3.1 mmol/ (11/06/2024, 6:48pm)L and (b) acute hypophosphatemia with PO4 1.1 mg/dL (11/06/2024, 6:48pm), which in turn, are due to chronic diarrhea, of unclear etiology, being evaluated for possible Crohn's disease at [facility]. Activity: Resume your previous activity Lifting: Gradually increase as tolerated Bathing: No limitations Sexual Activity: When tolerated Driving/Machine Use: No limitations Weightbearing: Full weightbearing Non-emergency contact: Primary Care Provider Call non-emergency contact if: you have any medication questions Follow-up/Referrals: Gabi Snider, [Primary Care Provider] - 11/11/24 9:20 am (Primary Care hospital follow up scheduled 11/11/24 at 9:20. Arrival time 9:05) Diet: Regular and Heart Healthy Addtl Attending Provider Instructions: 1. See your [facility] Board Handler Dr. Lynn Lima within 5-7 days of hospital discharge, to coordinate completion of your evaluation for possible Crohn's Disease with GI Service @ [facility] as you were started on Rinvoq 15mg PO daily ~5 weeks ago (to treat presumed Crohn's di sease by Dr. Lima), along with routine follow up with your Neurologist, also at [facility]. 2. See your PCP Dr. Gabi Snider within 5-7 days of hospital discharge. Pending Studies at Discharge: No Stand-Alone Forms: My [employer], Smoking Cessation Medications and DC Order Prescriptions: New levetiracetam [Keppra] 500 mg Tablet 1,500 mg PO BID Qty: 60 0RF Continued duloxetine 60 mg capsule,delayed release(DR/EC) 60 mg PO DAILY Qty: 90 3RF prochlorperazine maleate [Compazine] 5 mg tablet 5 mg PO TID PRN (Reason: NAUSEA/VOMITING) carisoprodol 350 mg tablet 350 mg PO QID meloxicam 7.5 mg tablet 7.5 mg PO DAILY gabapentin 800 mg tablet 800 mg PO DIRECTED PRN (Reason: NEEDED) Rx Instructions: PER PT "WILL TAKE 800 MG TABS IF STOMACH UPSET, DOESN'T BOTHER ME MUCH". hyoscyamine sulfate 0.125 mg tablet 0.125 mg PO TID PRN (Reason: ABD CRAMPING) folic acid 1 mg tablet 1 mg PO DAILY ergocalciferol (vitamin D2) [Vitamin D2] 1,250 mcg (50,000 unit) Capsule 1,250 mcg PO WK Rx Instructions: MONDAYS oxycodone 5 mg tablet 5 - 10 mg PO Q4H PRN (Reason: Pain) Rinvoq 15 mg tablet extended release 24 hr 15 mg PO DAILY amitriptyline 25 mg tablet 25 mg PO HS gabapentin 300 mg capsule 900 mg PO TID Discontinued levetiracetam 1,000 mg tablet 1,000 mg PO BID Discharge Orders: Discharge Order (Routine); Ordered 11/07/24 Ordered By: Geoffrey Moralez/Other Patient Handouts: How Seizures Affect the Body, What Is a Partial Seizure? Admission Data Admit Date/Time: 11/06/24 21:14 Attending Provider: Geoffrey Meraz [place]va Provider: Alana Kramer Primary Care Provider: Gabi Snider Other Providers: Alana Kramer; Isaac Joe. Other Interventions: Discharge Summary Assessment (RN) Last Done: 11/07/24 13:25 Hospital Stay Data Consultations 11/06/24 19:57 Consult Neurology Routine ED Decision to Admit Stat Diagnostic Imagining Performed 11/06/24 18:38 CT head/brain wo con Stat 11/06/24 18:46 CT angio chest PE protocol Stat 11/06/24 21:14 MRI Brain [MR brain seizure wo/w con] Stat Pending Results Patient Have Any Pending Studies at Discharge: No Discharge Instructions Given to Patient (Per Discharging Provider) 1. See your [facility] Board Handler Dr. Lynn Lima within 5-7 days of hospital discharge, to coordinate completion of your evaluation for possible Crohn's Disease with GI Service @ [facility] as you were started on Rinvoq 15mg PO daily ~5 weeks ago (to treat presumed Crohn's disease by Dr. Lima), along with routine follow up with your Neurologist, also at [facility]. 2. See your PCP Dr. Gabi Snider within 5-7 days of hospital discharge. Total Time Total Time Spent Total Time Spent (In Minutes): 35 minutes. Of this time period, 19 minutes were spent in coordinating patient's discharge. Coding Level of Care Code 63804 INP/OBS DISCH >30 MIN Diagnoses Hypokalemia E87.6 Hypophosphatemia E83.39 Acute dehydration E86.0 Seizure R56.9
--- NOTE | 2024-11-07 18:37 | Electrocardiogram Report ---
Test Reason : Blood Pressure : */* mmHG Vent. Rate : 97 BPM Atrial Rate : 97 BPM P-R Int : 152 ms QRS Dur : 90 ms QT Int : 360 ms P-R-T Axes : 60 36 -3 degrees QTcB Int : 457 ms Normal sinus rhythm Nonspecific T wave abnormality Abnormal ECG When compared with ECG of 06-Nov-2024 18:42, (unconfirmed) QT has shortened Confirmed by Nikita Hwang ([id number]) on 11/07/2024 6:36:49 PM Referred By: REFERRED SELF Confirmed By: Nikita Hwang
--- NOTE | 2024-11-07 18:42 | Electrocardiogram Report ---
Test Reason : Blood Pressure : */* mmHG Vent. Rate : 92 BPM Atrial Rate : 92 BPM P-R Int : 148 ms QRS Dur : 82 ms QT Int : 362 ms P-R-T Axes : 58 34 -8 degrees QTcB Int : 447 ms Normal sinus rhythm Nonspecific ST abnormality When compared with ECG of 06-Nov-2024 23:40, (unconfirmed) No significant change was found Confirmed by Nikita Hwang ([id number]) on 11/07/2024 6:41:34 PM Referred By: REFERRED SELF Confirmed By: Nikita Hwang
[2024-11-07] MEDS ORDERED: AMITRIPTYLINE HCL 25 MG TAB PO SCH (21:00)
== END 2024-11-07 14:34 | disposition home or self-care (01) | DRG 101 ==
LOC: ED 18:27 → SUATTDRO 21:14 → 4W 21:14